=== PATIENT | female | born 1945 | race Caucasian/White ===

== ENCOUNTER 2016-07-10 15:55 | Emergency (ER) | payer MEDICARE ==
[2016-07-10] MEDS ORDERED: Acetaminophen 500 MG TAB ONE (16:22)
[2016-07-10] MEDS ORDERED: cefTRIAXone\\ROCEPHIN 1 GM VIAL ONE (16:23)
[2016-07-10] MEDS ORDERED: Sodium Chloride 0.9% 100 ML ONE (16:23)
[2016-07-10 16:40] LABS: #Basophils 0.1 thou/uL (0.0-0.2); #Lymphocytes 1.8 thou/uL (1.20-3.40); #Monocytes 1.1 thou/uL (0.11-0.59); %Basophils 0.5 % (0.0-1.0); %Eosinophils 0.1 % (0.0-10.0); %Monocytes 6.8 % (0.0-10.0); Hematocrit 38.2 % (36.0-47.0); Mean Platelet Volume 5.2 fL (7.4-10.4); Red Blood Cell (RBC) Count 4.18 mill/uL (4.20-5.40)
[2016-07-10 16:51] LABS: Lactic Acid - Sepsis 2.1 mmol/L (0.5-2.2)
[2016-07-10 16:55] LABS: ALT (SGPT) 10 U/L (0-55); AST (SGOT) 14 U/L (5-34); Alkaline Phosphatase 133 U/L (40-150); Anion Gap 18 mmol/L (10-20); BUN (Urea Nitrogen) 9 mg/dL (9.8-20.1); Bilirubin, Total 0.8 mg/dL (0.2-1.2); Calc. Creatinine Clearance 0 mL/min (70-130); Calcium 9.6 mg/dL (7.8-10.44); Carbon Dioxide 25 mmol/L (23-31); Chloride 96 mmol/L (98-107); Estimated GFR-MDRD 68; Globulin 3.9 g/dL (2.4-3.5); Protein, Total 7.9 g/dL (5.8-8.1)
[2016-07-10] MEDS ORDERED: Ketorolac Tromethamine 30 MG/ML VIAL ONE (17:16)
[2016-07-10 17:52] LABS: Bilirubin Negative (Negative); Blood, Urine Trace (Negative); Glucose, Urine (Dipstick) 500 mg/dL (Negative); Ketone, Urine > or equal to 80 mg/dL (Negative); Nitrite Negative (Negative); Protein, Urine (Dipstick) Trace mg/dL (Neg-Trace); Urobilinogen 0.2 mg/dL (0.2-1.0)
[2016-07-10 17:55] LABS: Bacteria/HPF Rare-Few HPF (None Seen); Hyaline Casts/LPF NONE SEEN LPF (0-3 Hyaline); Oval Fat Bodies/HPF None Seen HPF (None Seen); RBC/HPF 0-3 HPF (0-3); Renal Epithelial None Seen HPF (0-3); Sperm/HPF None Seen HPF (None Seen); Squamous Epithelial None Seen HPF (0-3); Transitional Epithelial NONE SEEN HPF (0-3); Trichomonas/HPF None Seen HPF (None Seen); Yeast-All Forms None Seen HPF (None Seen)
--- NOTE | 2016-07-10 19:47 | RAD ---
PORTABLE CHEST 07/10/16 Comparison is made with the 08/19/14 study. There has been interval development of a left pleural effusion. There may be an underlying infiltrat e in the lower lobe. The right lung is relatively clear. I am not impressed by any vascular congesti on. While the right hilum is a little more prominent than the left, this is probably due to the aysha ent being turned slightly. The cardiac size is normal. IMPRESSION: Interval appearance of a left pleural effusion, plus or minus basilar infiltrate. POS: HOME
== END 2016-07-10 19:00 | disposition short-term general hospital (02) ==
LOC: BURERS 15:55
DX: J15.9 Unspecified bacterial pneumonia (principal); E11.65 Type 2 diabetes mellitus with hyperglycemia; K21.9 Gastro-esophageal reflux disease without esophagitis; E78.5 Hyperlipidemia, unspecified; I10 Essential (primary) hypertension; F41.9 Anxiety disorder, unspecified; F32.9 Major depressive disorder, single episode, unspecified; Z79.4 Long term (current) use of insulin
CPT/HCPCS: 36415; 36416; 71010; 80053; 81003; 81015; 83605; 85025; 87040; 87086; 94640; 94760; 96361; 96365; 96375; J0696; J1885; J7050; J7620

== ENCOUNTER 2020-01-07 00:22 | Emergency (ER) | payer MEDICARE ==
[2020-01-07 00:43] LABS: Bilirubin Negative (Negative); Blood, Urine Negative (Negative); Clarity Clear (Clear); Glucose, Urine (Dipstick) 500 mg/dL (Negative); Ketone, Urine Negative (Negative); Leukocyte Trace (Negative); Nitrite Negative (Negative); Protein, Urine (Dipstick) Negative (Neg-Trace); Specific Gravity, Urine 1.015 (1.005-1.030); Urobilinogen 0.2 mg/dL (Less than 2); pH, Urine 5.5 (5.0-9.0)
[2020-01-07 00:50] LABS: Bacteria/HPF Rare-Few HPF (None Seen); RBC/HPF 0-3 HPF (0-3); Squamous Epithelial 0-3 HPF (0-3)
[2020-01-07] MEDS ORDERED: Famotidine In NaCl 20 mg/50 ml Premix Bag ONE (01:01)
[2020-01-07] MEDS ORDERED: Ondansetron PF 4 MG/2 ML Vial ONE ×2 (01:01→01:54)
[2020-01-07 01:10] LABS: #Basophils 0.1 thou/uL (0.0-0.2); #Eosinphils 0.3 thou/uL (0.0-0.7); #Lymphocytes 3.9 thou/uL (1.20-3.40); #Monocytes 0.8 thou/uL (0.11-0.59); #Neutrophils 7.1 thou/uL (1.40-6.50); %Basophils 1.1 % (0.0-1.0); %Eosinophils 2.1 % (0.0-10.0); %Lymphocytes 31.9 % (21.0-51.0); %Monocytes 6.5 % (0.0-10.0); %Neutrophils 58.4 % (42.0-75.0); Mean Corpuscular HGB CONC 31.3 g/dL (32.0-36.0); Mean Corpuscular Hemoglobin 30.3 pg (27.0-31.0); Mean Corpuscular Volume 96.9 fL (78.0-98.0); Mean Platelet Volume 6.5 fL (7.4-10.4); Platelet Count 275 thou/uL (130-400); RBC Distribution Width 11.3 % (11.5-14.5); Red Blood Cell (RBC) Count 4.61 mill/uL (4.20-5.40); White Blood Cell (WBC) Count 12.1 thou/uL (4.8-10.8)
[2020-01-07] MEDS ORDERED: Fentanyl 100 MCG/2 ML VIAL ONE ×2 (01:11→01:43)
[2020-01-07 01:32] LABS: ALT (SGPT) 22 U/L (8-55); AST (SGOT) 20 U/L (5-34); Albumin 4.3 g/dL (3.4-4.8); Alkaline Phosphatase 121 U/L (40-110); Anion Gap 18 mmol/L (10-20); BUN (Urea Nitrogen) 15 mg/dL (9.8-20.1); Bilirubin, Total 0.7 mg/dL (0.2-1.2); Calc. Creatinine Clearance 0 mL/min (70-130); Calcium 8.6 mg/dL (7.8-10.44); Carbon Dioxide 24 mmol/L (23-31); Chloride 98 mmol/L (98-107); Estimated GFR-MDRD 53; Globulin 2.5 g/dL (2.4-3.5); Glucose 355 mg/dL (83-110); Lipase 9 U/L (8-78); Potassium 3.9 mmol/L (3.5-5.1); Protein, Total 6.8 g/dL (6.0-8.3); Sodium 136 mmol/L (136-145)
[2020-01-07] MEDS ORDERED: Morphine 2 MG/ML SYRINGE ONE (02:14)
[2020-01-07] MEDS ORDERED: Glycopyrrolate 0.4 MG/ 2 ML VIAL ONE (02:15)
--- NOTE | 2020-01-07 09:28 | CT ---
PRELIMINARY REPORT/[facility]/EMERGENCY AFTER HOURS PROCEDURE: Receipt of this report by the clinical staff was confirmed with ОЛЕГ IBANEZ DO by Claudia Guzman Jan 07, 2020 02:26:00 CDT. Addendum electronically signed by Claudia Guzman on January 07, 2020 2:26:33 AM CDT EXAM: CT Abdomen and Pelvis with Intravenous Contrast CLINICAL HISTORY: ABD PAIN, WORSE ON THE LEFT THAN RIGHT TECHNIQUE: Axial computed tomography images of the abdomen and pelvis with intravenous contrast. Multiplanar re formats. This foraminal CONTRAST: With; ISO 370 COMPARISON: None provided. FINDINGS: LUNG BASES: No basilar airspace consolidation or pleural effusion. Left lower lobe bronchiectasis. LIVER: Unremarkable. GALLBLADDER AND BILE DUCTS: Unremarkable. No calcified stone. No ductal dilation. PANCREAS: Unremarkable. SPLEEN: Unremarkable. ADRENAL GLANDS: Unremarkable. KIDNEYS, URETERS, AND BLADDER: Unremarkable. No hydronephrosis or nephrolithiasis. No ureteral or bladder calculi. STOMACH AND BOWEL: Small hiatal hernia. Stacked fluid-filled small bowel loops in the abdomen and pelvis measure up to 3 cm. The transition point is in the central pelvis, there are short segments containing small bowel feces. APPENDIX: No CT evidence for appendicitis. PERITONEUM: Central mesenteric edema. No free fluid. No free air. LYMPH NODES: No lymphadenopathy. REPRODUCTIVE: Unremarkable as visualized. VASCULATURE: No aortic aneurysm. Atherosclerosis. Prominent mitral valve calcification. BONES: No fracture or suspicious osseous abnormality. Degenerative disc disease with foraminal narrowing at several lumbar levels. ABDOMINAL WALL AND SOFT TISSUES: Unremarkable. IMPRESSION: Distal small bowel obstruction with likely early strangulation. Nasogastric suction and surgical con sultation suggested, if clinically warranted. Small hiatal hernia. ELECTRONICALLY SIGNED BY: Gino Salazar MD Jan 07, 2020 2:20:14 AM CDT This report is intended for review by the ordering physician only, in accordance of law. If you recei ve this report in error, please call [facility] at [phone]. FINAL REPORT CT ABDOMEN AND PELVIS WITH CONTRAST: Date: 01/07/[address] of the abdomen and pelvis was performed for evaluation of abdominal pain. Scans were done w ith IV contrast and multiplanar reconstructions were done as well. Comparison is made with an 12/31/2013 study. FINDINGS: Multiple dilated fluid-filled loops of small bowel are present, some ranging up to nearly 3.0 cm in w idth. This is true of most of the small bowel, with only the distalmost portions assuming a normal si ze. The transition point appears to be distal. There is fecalization in some of the distal loops. No free air or free fluid seen. The lung bases are clear. A moderate sized hiatal hernia is present, a new finding compared to 2014. The liver, spleen, pancreas, gallbladder, kidneys, adrenal glands, and abdominal aorta show no acute findings. In the pelvis, there are some calcifications in the uterus that could be fibroids. No free fluid or inflammatory change is seen in the pelvis. Some degenerative changes are seen in the spine. IMPRESSION: 1. Distal small bowel obstruction. 2. Moderate sized hiatal hernia. Report in agreement with preliminary reading by [facility]. POS: HOME
--- NOTE | 2020-01-07 09:28 | RAD ---
ABDOMEN 1 VIEW: DATE: 01/07/2020. FINDINGS: An NG tube can be seen coursing down the midline of the lower chest and then it appears to take a cur ve towards the stomach. On this single film, as best as I can tell, the tip is probably in the dista l esophagus just about the enter the stomach itself. There are some mildly distended loops of bowel with air fluid levels. See CT to follow. No free air is present. IMPRESSION: Nasogastric tube most likely in the distal esophagus. POS: HOME
== END 2020-01-07 02:58 | disposition short-term general hospital (02) ==
LOC: BURERS 00:22
DX: K56.2 Volvulus (principal); E11.9 Type 2 diabetes mellitus without complications; K21.9 Gastro-esophageal reflux disease without esophagitis; E78.5 Hyperlipidemia, unspecified; I10 Essential (primary) hypertension; F41.9 Anxiety disorder, unspecified; F32.9 Major depressive disorder, single episode, unspecified; Z79.899 Other long term (current) drug therapy
CPT/HCPCS: 36416; 43752; 74018; 74177; 80053; 81003; 81015; 83690; 84484; 85025; 87086; 94760; 96365; 96375; 96376; J2270; J2405; J3010

== ENCOUNTER 2020-02-15 17:17 | Emergency (ER) | payer MEDICARE, OTHER ==
[2020-02-15 19:03] LABS: ALT (SGPT) 25 U/L (8-55); AST (SGOT) 29 U/L (5-34); Albumin 4.2 g/dL (3.4-4.8); Alkaline Phosphatase 88 U/L (40-110); Anion Gap 18 mmol/L (10-20); BUN (Urea Nitrogen) 15 mg/dL (9.8-20.1); Bilirubin, Total 0.4 mg/dL (0.2-1.2); Calc. Creatinine Clearance 0 mL/min (70-130); Calcium 9.1 mg/dL (7.8-10.44); Carbon Dioxide 25 mmol/L (23-31); Chloride 98 mmol/L (98-107); Estimated GFR-MDRD 58; Glucose 199 mg/dL (83-110); Potassium 3.8 mmol/L (3.5-5.1); Protein, Total 7.2 g/dL (6.0-8.3); Sodium 137 mmol/L (136-145)
[2020-02-15 19:08] LABS: Band 1 % (5-11); Eosinophils 1 % (0-10); Hemoglobin 13.4 g/dL (12.0-16.0); Lymphocytes 29 % (21-51); MDiff Complete? YES; Mean Corpuscular Hemoglobin 30.3 pg (27.0-31.0); Mean Corpuscular Volume 97.8 fL (78.0-98.0); Mean Platelet Volume 6.3 fL (7.4-10.4); Monocytes 10 % (0-10); Neutrophil 53 % (42-75); Platelet Count 221 thou/uL (130-400); RBC Distribution Width 11.5 % (11.5-14.5); Reactive Lymphocytes 6 % (0-10); Red Blood Cell (RBC) Count 4.41 mill/uL (4.20-5.40); White Blood Cell (WBC) Count 5.1 thou/uL (4.8-10.8)
[2020-02-15 19:12] LABS: Bilirubin Small (Negative); Blood, Urine Negative (Negative); Clarity Clear (Clear); Glucose, Urine (Dipstick) Negative (Negative); Ketone, Urine Trace mg/dL (Negative); Leukocyte Negative (Negative); Nitrite Negative (Negative); Protein, Urine (Dipstick) Trace mg/dL (Neg-Trace); Urobilinogen 0.2 mg/dL (Less than 2)
[2020-02-15] MEDS ORDERED: Acetaminophen 500 MG TAB ONE (19:55)
[2020-02-15] MEDS ORDERED: Aspirin Chewable 81 MG TAB ONE (19:55)
--- NOTE | 2020-02-15 21:38 | RAD ---
PORTABLE CHEST: Date: 02-15-2020 An AP portable film at 1910 is compared with an 01-07-2020 study. FINDINGS: The heart is normal in size. No definite acute infiltrate was seen. There is no sign of vascular justine estion, edema, or pleural effusion. The mediastinum showed no acute change. IMPRESSION: No acute thoracic finding. POS: HOME
[2020-02-16 16:04] LABS: SARS-CoV-2 MS2 Positive; SARS-CoV-2 N Gene Positive; SARS-CoV-2 S Gene Positive; SARS-CoV-2 by NAA DETECTED (NotDetected); SARS-CoV-2 orf1ab Positive
== END 2020-02-15 20:10 | disposition home or self-care (01) ==
LOC: BURERS 17:17
DX: U07.1 COVID-19 (principal); E11.9 Type 2 diabetes mellitus without complications; I10 Essential (primary) hypertension; K21.9 Gastro-esophageal reflux disease without esophagitis; E78.5 Hyperlipidemia, unspecified; F41.9 Anxiety disorder, unspecified; F32.9 Major depressive disorder, single episode, unspecified
CPT/HCPCS: 36415; 71045; 80053; 81003; 83605; 83880; 84484; 85025; 87635; 87804; 93005; U0003

== ENCOUNTER 2020-02-21 21:01 | Emergency (ER) | payer MEDICARE, OTHER ==
[2020-02-21] MEDS ORDERED: Guaifenesin DM 100-10/5 ML UDCUP ONE ×2 (21:31→21:32)
[2020-02-21 22:02] LABS: Base Excess-Venous -1.5 mmol/L (-2.0 to 3.0); Bicarbonate (HCO3v) 23.1 mmol/L (22.0-28.0); CO2 Tension (PvCO2) 37.9 mmHg (40.0-50.0); Calcium, Ionized 1.03 mmol/L (1.15-1.33); Chloride 99 mmol/L (98-107); Hemoglobin - Calc 14.6 g/dL (12.0-16.0); Sodium 131 mmol/L (138-145); T. Carbon Dioxide 24.2 mmol/L (22.0-28.0); vO2 Saturation-calc 80.7 % (60.0-85.0)
[2020-02-21 22:02] LABS: D-Dimer Test 0.61 *mcg/mL (0.27-0.43)
[2020-02-21 22:04] LABS: ALT (SGPT) 29 U/L (8-55); AST (SGOT) 48 U/L (5-34); Albumin 3.9 g/dL (3.4-4.8); Alkaline Phosphatase 91 U/L (40-110); Anion Gap 20 mmol/L (10-20); BUN (Urea Nitrogen) 14 mg/dL (9.8-20.1); Bilirubin, Total 0.4 mg/dL (0.2-1.2); Calc. Creatinine Clearance 0 mL/min (70-130); Calcium 8.2 mg/dL (7.8-10.44); Carbon Dioxide 20 mmol/L (23-31); Chloride 96 mmol/L (98-107); Estimated GFR-MDRD 49; Globulin 2.5 g/dL (2.4-3.5); Glucose 469 mg/dL (83-110); Potassium 4.4 mmol/L (3.5-5.1); Protein, Total 6.4 g/dL (6.0-8.3); Sodium 132 mmol/L (136-145)
[2020-02-21 22:11] LABS: #Lymphocytes 1.5 thou/uL (1.20-3.40); #Monocytes 0.3 thou/uL (0.11-0.59); #Neutrophils 4.1 thou/uL (1.40-6.50); %Basophils 0.4 % (0.0-1.0); %Eosinophils 0.2 % (0.0-10.0); %Lymphocytes 24.7 % (21.0-51.0); %Monocytes 4.8 % (0.0-10.0); %Neutrophils 69.9 % (42.0-75.0); Hemoglobin 13.5 g/dL (12.0-16.0); Mean Corpuscular HGB CONC 31.7 g/dL (32.0-36.0); Mean Corpuscular Hemoglobin 30.3 pg (27.0-31.0); Mean Corpuscular Volume 95.5 fL (78.0-98.0); Mean Platelet Volume 7.7 fL (7.4-10.4); Platelet Count 163 thou/uL (130-400); RBC Distribution Width 10.6 % (11.5-14.5); Red Blood Cell (RBC) Count 4.45 mill/uL (4.20-5.40); White Blood Cell (WBC) Count 5.9 thou/uL (4.8-10.8)
[2020-02-21] MEDS ORDERED: Insulin Regular 300 UNITS/3 ML VIAL ONE (22:12)
[2020-02-21] MEDS ORDERED: Enoxaparin Sodium 30 MG/0.3 ML SYRINGE ONE (22:15)
[2020-02-21 22:26] LABS: CKMB 0.8 ng/mL (0-6.6)
--- NOTE | 2020-02-22 07:16 | RAD ---
PORTABLE CHEST: Date: 02/21/2020 An AP portable film at 2133 hours is compared with the 02/15/2020 study. Although there is some respiratory motion on these films which blurs some portions, even allowing for this, I believe there are some patchy diffuse infiltrates in the right lung that were not present be fore. There may be a little linear atelectasis in the left base as well. Left upper lobe is fairly cl ear. There are no large effusions. The heart size is normal. IMPRESSION: Increase in patchy haziness in the right lung, especially peripherally, since 02/15/2020. Findings discussed with Dr. Gutierrez at 2141 hours. CODE CR. POS: HOME
== END 2020-02-21 23:15 | disposition short-term general hospital (02) ==
LOC: BURERS 21:01
DX: U07.1 COVID-19 (principal); J12.89 Other viral pneumonia; R06.03 Acute respiratory distress; R09.02 Hypoxemia; E11.9 Type 2 diabetes mellitus without complications; I10 Essential (primary) hypertension; K21.9 Gastro-esophageal reflux disease without esophagitis; E78.5 Hyperlipidemia, unspecified; F41.9 Anxiety disorder, unspecified; F32.9 Major depressive disorder, single episode, unspecified; Z79.899 Other long term (current) drug therapy; Z79.891 Long term (current) use of opiate analgesic
CPT/HCPCS: 71045; 80053; 82330; 82553; 82803; 83605; 83880; 84484; 85014; 85025; 85379; 85384; 85652; 86140; 87040; 96365; 96372; 96375; J1650; J1815; J1956; J3370

== ENCOUNTER 2020-03-01 17:55 | Inpatient (IN) | payer MEDICARE, OTHER ==
[2020-03-01] MEDS ORDERED: Ondansetron ODT 4 MG TAB PO PRN (20:49)
[2020-03-01] MEDS ORDERED: Dextrose 5% in Water 1,000 ML IV PRN (20:50)
[2020-03-01] MEDS ORDERED: Dextrose 50% Abboject 50 ML SYRINGE SLOW IVP PRN (20:50)
[2020-03-01] MEDS: ALPRAZolam 0.5 MG TAB PO PRN (21:29)
[2020-03-01] MEDS: Acetaminophen/Codeine 30-300mg Tablet PO PRN (21:29)
[2020-03-01] MEDS: HumaLOG 300 UNITS/3 ML VIAL SC PRN (21:46)
[2020-03-02] MEDS: Albuterol 200 PUFF (6.7GM INHALER) INH PRN ×2 (04:53→20:04)
[2020-03-02] MEDS: Acetaminophen/Codeine 30-300mg Tablet PO PRN ×4 (05:05→23:41)
[2020-03-02] MEDS ORDERED: Dexamethasone 4 MG TAB PO SCH (08:00)
[2020-03-02] MEDS: Lisinopril 5 MG TAB PO SCH (08:46)
[2020-03-02] MEDS: Saccharomyces boulardii 250 MG CAP PO SCH (08:46)
[2020-03-02] MEDS: FLUoxetine HCl 10 MG CAP PO SCH (08:46)
[2020-03-02] MEDS ORDERED: Ascorbic Acid 500 mg Chewable Tablet PO SCH (09:00)
[2020-03-02] MEDS: Lantus 1000 UNITS/10 ML VIAL SC SCH (10:23)
[2020-03-02] MEDS: HumaLOG 300 UNITS/3 ML VIAL SC PRN ×4 (10:23→20:16)
[2020-03-02] MEDS: ALPRAZolam 0.5 MG TAB PO PRN (20:04)
[2020-03-03] MEDS: Acetaminophen/Codeine 30-300mg Tablet PO PRN ×3 (05:28→17:53)
[2020-03-03] MEDS: FLUoxetine HCl 10 MG CAP PO SCH (08:42)
[2020-03-03] MEDS: Lisinopril 5 MG TAB PO SCH (08:42)
[2020-03-03] MEDS: Saccharomyces boulardii 250 MG CAP PO SCH (08:42)
[2020-03-03] MEDS: Lantus 1000 UNITS/10 ML VIAL SC SCH (08:43)
[2020-03-03] MEDS: ZINC SULFATE 220 MG PO SCH ×2 (08:48→12:45)
[2020-03-03] MEDS: Zinc Sulfate 220 MG CAP PO SCH (09:28)
[2020-03-03] MEDS: HumaLOG 300 UNITS/3 ML VIAL SC PRN ×2 (12:49→17:53)
[2020-03-03] MEDS: ALPRAZolam 0.5 MG TAB PO PRN (21:43)
[2020-03-04] MEDS: Acetaminophen/Codeine 30-300mg Tablet PO PRN ×3 (00:43→20:01)
[2020-03-04] MEDS: FLUoxetine HCl 10 MG CAP PO SCH (08:34)
[2020-03-04] MEDS: Lisinopril 5 MG TAB PO SCH (08:34)
[2020-03-04] MEDS: Saccharomyces boulardii 250 MG CAP PO SCH (08:35)
[2020-03-04] MEDS: Lantus 1000 UNITS/10 ML VIAL SC SCH (08:35)
[2020-03-04] MEDS: Zinc Sulfate 220 MG CAP PO SCH (08:35)
[2020-03-04] MEDS: HumaLOG 300 UNITS/3 ML VIAL SC PRN ×2 (13:06→17:39)
[2020-03-04] MEDS: ALPRAZolam 0.5 MG TAB PO PRN (20:00)
[2020-03-05] MEDS: Acetaminophen/Codeine 30-300mg Tablet PO PRN ×3 (03:27→18:36)
[2020-03-05] MEDS: ALPRAZolam 0.5 MG TAB PO PRN ×2 (03:27→12:11)
[2020-03-05] MEDS: FLUoxetine HCl 10 MG CAP PO SCH (09:21)
[2020-03-05] MEDS: Lisinopril 5 MG TAB PO SCH (09:22)
[2020-03-05] MEDS: Zinc Sulfate 220 MG CAP PO SCH (09:22)
[2020-03-05] MEDS: Lantus 1000 UNITS/10 ML VIAL SC SCH (09:22)
[2020-03-05] MEDS: Saccharomyces boulardii 250 MG CAP PO SCH (09:22)
[2020-03-05] MEDS: HumaLOG 300 UNITS/3 ML VIAL SC PRN ×2 (12:17→17:19)
[2020-03-06] MEDS: Acetaminophen/Codeine 30-300mg Tablet PO PRN ×4 (01:03→23:13)
[2020-03-06] MEDS: ALPRAZolam 0.5 MG TAB PO PRN (01:03)
[2020-03-06 05:42] LABS: #Basophils 0.1 thou/uL (0.0-0.2); #Eosinphils 0.2 thou/uL (0.0-0.7); #Lymphocytes 3.1 thou/uL (1.20-3.40); #Monocytes 0.8 thou/uL (0.11-0.59); #Neutrophils 6.2 thou/uL (1.40-6.50); %Eosinophils 1.5 % (0.0-10.0); %Lymphocytes 30.1 % (21.0-51.0); %Monocytes 7.7 % (0.0-10.0); %Neutrophils 59.8 % (42.0-75.0); Hemoglobin 12.1 g/dL (12.0-16.0); Mean Corpuscular HGB CONC 32.4 g/dL (32.0-36.0); Mean Corpuscular Hemoglobin 31.8 pg (27.0-31.0); Mean Corpuscular Volume 98.2 fL (78.0-98.0); Mean Platelet Volume 6.1 fL (7.4-10.4); Platelet Count 256 thou/uL (130-400); RBC Distribution Width 12.2 % (11.5-14.5); White Blood Cell (WBC) Count 10.4 thou/uL (4.8-10.8)
[2020-03-06 06:04] LABS: ALT (SGPT) 33 U/L (8-55); AST (SGOT) 32 U/L (5-34); Alkaline Phosphatase 160 U/L (40-110); Anion Gap 12 mmol/L (10-20); BUN (Urea Nitrogen) 24 mg/dL (9.8-20.1); Bilirubin, Direct 0.2 mg/dL (0.1-0.3); Bilirubin, Total 0.4 mg/dL (0.2-1.2); Calc. Creatinine Clearance 62 mL/min (70-130); Calcium 8.4 mg/dL (7.8-10.44); Carbon Dioxide 30 mmol/L (23-31); Chloride 95 mmol/L (98-107); Globulin 2.9 g/dL (2.4-3.5); Glucose 368 mg/dL (83-110); Potassium 4.7 mmol/L (3.5-5.1); Protein, Total 5.9 g/dL (6.0-8.3); Sodium 132 mmol/L (136-145)
[2020-03-06] MEDS: Saccharomyces boulardii 250 MG CAP PO SCH (09:05)
[2020-03-06] MEDS: Lisinopril 5 MG TAB PO SCH (09:06)
[2020-03-06] MEDS: FLUoxetine HCl 10 MG CAP PO SCH (09:06)
[2020-03-06] MEDS: Lantus 1000 UNITS/10 ML VIAL SC SCH (09:07)
[2020-03-06] MEDS: Zinc Sulfate 220 MG CAP PO SCH (09:07)
[2020-03-06] MEDS: HumaLOG 300 UNITS/3 ML VIAL SC PRN ×3 (12:33→21:07)
[2020-03-06] MEDS ORDERED: Lantus 1000 UNITS/10 ML VIAL SC SCH (21:00)
[2020-03-06] MEDS ORDERED: Insulin Glargine 30 UNITS in Pre-Filled Syringe 1 EACH SC SCH (21:00)
[2020-03-06] MEDS: Albuterol 200 PUFF (6.7GM INHALER) INH PRN (23:15)
[2020-03-07] MEDS: ALPRAZolam 0.5 MG TAB PO PRN ×2 (00:18→21:05)
[2020-03-07] MEDS: FLUoxetine HCl 10 MG CAP PO SCH (08:01)
[2020-03-07] MEDS: Lisinopril 5 MG TAB PO SCH (08:01)
[2020-03-07] MEDS: Saccharomyces boulardii 250 MG CAP PO SCH (08:01)
[2020-03-07] MEDS: Zinc Sulfate 220 MG CAP PO SCH (08:01)
[2020-03-07] MEDS: HumaLOG 300 UNITS/3 ML VIAL SC PRN ×4 (08:02→22:07)
[2020-03-07] MEDS: Lantus 1000 UNITS/10 ML VIAL SC SCH (08:03)
[2020-03-07] MEDS: Acetaminophen/Codeine 30-300mg Tablet PO PRN ×3 (08:23→21:04)
[2020-03-08] MEDS: Acetaminophen/Codeine 30-300mg Tablet PO PRN ×3 (05:44→20:26)
[2020-03-08] MEDS: Lisinopril 5 MG TAB PO SCH (08:03)
[2020-03-08] MEDS: FLUoxetine HCl 10 MG CAP PO SCH (08:03)
[2020-03-08] MEDS: Zinc Sulfate 220 MG CAP PO SCH (08:03)
[2020-03-08] MEDS: Saccharomyces boulardii 250 MG CAP PO SCH (08:03)
[2020-03-08] MEDS: Lantus 1000 UNITS/10 ML VIAL SC SCH (08:04)
[2020-03-08] MEDS: HumaLOG 300 UNITS/3 ML VIAL SC PRN ×4 (08:19→21:49)
[2020-03-08] MEDS: Fluconazole 100 MG TAB PO SCH (15:57)
[2020-03-09] MEDS: Acetaminophen/Codeine 30-300mg Tablet PO PRN ×3 (03:05→20:55)
[2020-03-09] MEDS: Zinc Sulfate 220 MG CAP PO SCH (09:37)
[2020-03-09] MEDS: Saccharomyces boulardii 250 MG CAP PO SCH (09:37)
[2020-03-09] MEDS: FLUoxetine HCl 10 MG CAP PO SCH (09:37)
[2020-03-09] MEDS: Lantus 1000 UNITS/10 ML VIAL SC SCH (09:39)
[2020-03-09] MEDS: Lisinopril 5 MG TAB PO SCH (09:42)
[2020-03-09 10:05] VITALS: BMI 29.8
[2020-03-09] MEDS: HumaLOG 300 UNITS/3 ML VIAL SC PRN ×3 (13:11→20:52)
[2020-03-09] MEDS: Fluconazole 100 MG TAB PO SCH (17:11)
[2020-03-09] MEDS: ALPRAZolam 0.5 MG TAB PO PRN (21:07)
[2020-03-10] MEDS: Acetaminophen/Codeine 30-300mg Tablet PO PRN ×3 (05:33→18:29)
[2020-03-10] MEDS: ALPRAZolam 0.5 MG TAB PO PRN (10:00)
[2020-03-10] MEDS: Saccharomyces boulardii 250 MG CAP PO SCH (10:18)
[2020-03-10] MEDS: FLUoxetine HCl 10 MG CAP PO SCH (10:18)
[2020-03-10] MEDS: Lisinopril 5 MG TAB PO SCH (10:19)
[2020-03-10] MEDS: Lantus 1000 UNITS/10 ML VIAL SC SCH (10:20)
[2020-03-10] MEDS: Zinc Sulfate 220 MG CAP PO SCH (10:20)
[2020-03-10] MEDS: HumaLOG 300 UNITS/3 ML VIAL SC PRN ×3 (12:04→23:35)
[2020-03-10] MEDS: Fluconazole 100 MG TAB PO SCH (17:15)
[2020-03-11] MEDS: Acetaminophen/Codeine 30-300mg Tablet PO PRN ×3 (06:07→21:50)
[2020-03-11] MEDS: FLUoxetine HCl 10 MG CAP PO SCH (08:24)
[2020-03-11] MEDS: Saccharomyces boulardii 250 MG CAP PO SCH (08:25)
[2020-03-11] MEDS: Zinc Sulfate 220 MG CAP PO SCH (08:25)
[2020-03-11] MEDS: Lisinopril 5 MG TAB PO SCH (08:25)
[2020-03-11] MEDS: Lantus 1000 UNITS/10 ML VIAL SC SCH (08:28)
[2020-03-11] MEDS: HumaLOG 300 UNITS/3 ML VIAL SC PRN ×4 (08:31→21:51)
[2020-03-11] MEDS: ALPRAZolam 0.5 MG TAB PO PRN (22:03)
[2020-03-12] MEDS: Lisinopril 5 MG TAB PO SCH (08:11)
[2020-03-12] MEDS: FLUoxetine HCl 10 MG CAP PO SCH (08:11)
[2020-03-12] MEDS: Lantus 1000 UNITS/10 ML VIAL SC SCH (08:12)
[2020-03-12] MEDS: Saccharomyces boulardii 250 MG CAP PO SCH (08:12)
[2020-03-12] MEDS: Zinc Sulfate 220 MG CAP PO SCH (08:12)
[2020-03-12] MEDS: HumaLOG 300 UNITS/3 ML VIAL SC PRN ×4 (09:37→22:12)
[2020-03-12] MEDS: Acetaminophen/Codeine 30-300mg Tablet PO PRN ×2 (11:59→18:54)
[2020-03-13] MEDS: Acetaminophen/Codeine 30-300mg Tablet PO PRN ×4 (01:07→21:56)
[2020-03-13] MEDS: ALPRAZolam 0.5 MG TAB PO PRN ×2 (01:07→21:56)
[2020-03-13] MEDS: FLUoxetine HCl 10 MG CAP PO SCH (07:56)
[2020-03-13] MEDS: Saccharomyces boulardii 250 MG CAP PO SCH (07:56)
[2020-03-13] MEDS: Zinc Sulfate 220 MG CAP PO SCH (07:57)
[2020-03-13] MEDS: Lisinopril 5 MG TAB PO SCH (07:57)
[2020-03-13] MEDS: Lantus 1000 UNITS/10 ML VIAL SC SCH (07:58)
[2020-03-13] MEDS: HumaLOG 300 UNITS/3 ML VIAL SC PRN ×4 (07:58→21:52)
[2020-03-14] MEDS: Zinc Sulfate 220 MG CAP PO SCH (08:28)
[2020-03-14] MEDS: FLUoxetine HCl 10 MG CAP PO SCH (08:28)
[2020-03-14] MEDS: Lisinopril 5 MG TAB PO SCH (08:28)
[2020-03-14] MEDS: Saccharomyces boulardii 250 MG CAP PO SCH (08:31)
[2020-03-14] MEDS: Lantus 1000 UNITS/10 ML VIAL SC SCH (08:32)
[2020-03-14] MEDS: HumaLOG 300 UNITS/3 ML VIAL SC PRN ×3 (08:33→17:16)
[2020-03-14] MEDS: Acetaminophen/Codeine 30-300mg Tablet PO PRN ×2 (09:16→15:48)
[2020-03-14] MEDS: Albuterol 200 PUFF (6.7GM INHALER) INH PRN (15:49)
[2020-03-14 17:39] VITALS: BP 136/62; TEMP 98.2
--- NOTE | 2020-03-17 13:36 | DIS ---
DATE OF ADMISSION: 03/01/2020 DATE OF DISCHARGE: 03/14/2020 ADMISSION DIAGNOSES: 1. COVID pneumonia, resolving. 2. Acute respiratory failure, resolving. 3. Deconditioning. 4. Diabetes mellitus. 5. Hypertension. DISCHARGE DIAGNOSES: 1. COVID pneumonia, resolving. 2. Acute respiratory failure, resolved. 3. Deconditioning, improved. 4. Diabetes mellitus, controlled. HOSPITAL COURSE: The patient is an extremely pleasant 75-year-old white female, who came down with COVID pneumonia with acute hypoxic respiratory failure requiring admission to the hospital. She was admitted on 02/22/2020, due to deconditioning, was transferred to [facility] on 03/01/2020. HOSPITAL COURSE: The patient was initiated to start occupational physical therapy. She required a walker during ambulation. She slowly improved to the point where she can ambulate independently and/or with a walker or cane and transfer independently. The patient's hypoxia improved somewhat, but she continued to require some oxygenation. Hopefully, that will continue to improve and resolve after discharge. The patient's diabetes mellitus was controlled with a sliding scale and she was given extra insulin to control her diabetes. The patient's anxiety and depression were well controlled as well. DISCHARGE MEDICATIONS: 1. Lantus 30 units every morning. 2. Alprazolam 0.25 mg q.6 hours p.r.n. anxiety. 3. Proventil HFA p.r.n. cough. 4. Vitamin C 1000 mg daily. 5. Zinc sulfate 220 mg daily. 6. Tresiba 20 units subcutaneously will be replaced by insulin Lantus. 7. Acetaminophen with Codeine #3 one tablet q.6 hours p.r.n. pain. 8. Fluoxetine 40 mg daily. 9. Lisinopril 5 mg daily. DISCHARGE ACTIVITY: Will be as tolerated. The patient was ordered to have home health for continued occupational and physical therapy on a home basis. Follow up with her PCP Dr. Barillas within two weeks. She was told to go to the emergency room if her symptoms worsen. Job ID: [id number]
--- NOTE | 2020-04-18 06:12 | HP ---
ADMISSION DIAGNOSES: 1. COVID-19 pneumonia with hypoxia and deconditioning. 2. Diabetes mellitus. HISTORY OF PRESENT ILLNESS: The patient is an extremely pleasant 75-year-old white female who was admitted to [facility] on February 22, 2020, with COVID pneumonia with acute hypoxic respiratory failure secondary to the pneumonia. She was seen by Dr. Raphael and started on dexamethasone, remdesivir, vitamin C, and zinc. She clinically improved, but continued to require supplemental oxygen, was severely deconditioned and thus was admitted to [facility] in [place] for occupational and physical therapy and continued oxygen therapy as well as finishing her course of dexamethasone. PAST MEDICAL HISTORY: Significant for: 1. Diabetes mellitus. 2. COVID-19 pneumonia. 3. History of recent hyponatremia. 4. History of severe deconditioning. 5. History of hypertension. 6. History of anxiety and depression. 7. History of gastroesophageal reflux disease. MEDICATIONS: 1. Alprazolam 0.25 mg q.6 hours p.r.n. 2. Albuterol/Proventil inhaler p.r.n. 3. Vitamin C 1000 mg daily. 4. Zinc 220 mg daily. 5. Tresiba 20 units daily. 6. Tylenol with codeine No. 3 daily p.r.n. pain. 7. Fluoxetine 40 mg daily. 8. Lisinopril 5 mg daily. 9. Omeprazole 20 mg daily. 10. Dexamethasone 6 mg p.o. daily. SOCIAL HISTORY: The patient is a retired nurse. She is independent in all activities of daily living at her baseline. No significant smoking, alcohol, or social drug use. REVIEW OF SYSTEMS: The patient reports diffuse weakness, tiredness, and tachypnea with any exertion. The patient says that she continues to have a cough, dry to yellow clear sputum. She had fevers during hospitalization, which have now resolved. Her appetite had been poor, but is present. The patient denied any emesis or diarrhea. No dysuria, hematuria, or change in urinary frequency. No abdominal pain. No palpitations reported. The patient denies any significant weight loss or weight gain. She reports her depression and anxiety are being controlled. No significant back pain and no rashes reported. PHYSICAL EXAMINATION: GENERAL: White female, tired appearing, in no apparent distress. VITAL SIGNS: Blood pressure 128/68, respiratory rate was 22, pulse was 88. HEENT: Atraumatic, normocephalic. Extraocular movements are intact. Pupils are equal, round, reactive to light and accommodation. Oropharynx, mucous membranes are moist. No exudate, discharge, or lesions. NECK: Supple. No masses palpated. No bruits auscultated. CHEST: Had rhonchi bilaterally without rales or wheezes. HEART: Regular rate and rhythm without murmurs, rubs, or gallops. ABDOMEN: Soft, nontender, nondistended. No masses are palpated. EXTREMITIES: Show no cyanosis, clubbing, or edema. Moves all extremities x4. ASSESSMENT AND PLAN: 1. COVID pneumonia with acute hypoxic respiratory failure, which has improved. The patient will continue on the oxygen. 2. Deconditioning. Physical therapy and occupational therapy will be initiated. 3. Diabetes mellitus. We will place the patient on insulin sliding scale with Accu-Cheks q.a.c. and at bedtime. 4. COVID pneumonia. The patient will continue dexamethasone for the full course as well as oxygen p.r.n. She will continue to be in isolation, which will be needed for 21 days total. DISPOSITION: Plan will be discharge to home once the patient is able. Job ID: [id number]
== END 2020-03-14 20:36 | disposition home health service (06) | DRG 947 ==
LOC: BURMED 18:20
PROVIDERS: ADMIT Family Medicine; ATTEND Family Medicine
DX: R53.81 Other malaise (principal); U07.1 COVID-19; J12.89 Other viral pneumonia; I10 Essential (primary) hypertension; E11.9 Type 2 diabetes mellitus without complications; E78.00 Pure hypercholesterolemia, unspecified; K21.9 Gastro-esophageal reflux disease without esophagitis
CPT/HCPCS: 36415; 36416; 80053; 80076; 85025; J1815; J8540

== ENCOUNTER 2021-01-16 10:59 | Observation (INO) | payer MEDICARE ==
[2021-01-16 12:04] LABS: #Basophils 0.2 thou/uL (0.0-0.2); #Eosinphils 0.6 thou/uL (0.0-0.7); #Lymphocytes 2.7 thou/uL (1.20-3.40); #Neutrophils 10.2 thou/uL (1.40-6.50); %Lymphocytes 18.3 % (21.0-51.0); %Monocytes 6.6 % (0.0-10.0); Hemoglobin 14.6 g/dL (12.0-16.0); Mean Corpuscular HGB CONC 31.8 g/dL (32.0-36.0); Mean Corpuscular Hemoglobin 30.1 pg (27.0-31.0); Mean Corpuscular Volume 94.7 fL (78.0-98.0); Platelet Count 403 thou/uL (130-400); Red Blood Cell (RBC) Count 4.86 mill/uL (4.20-5.40); White Blood Cell (WBC) Count 14.6 thou/uL (4.8-10.8)
[2021-01-16] MEDS ORDERED: methylPREDNISolone Sod Succ/PF 125 MG/2 ML VIAL ONE (12:06)
[2021-01-16 12:10] LABS: Bilirubin Moderate (Negative); Blood, Urine Trace (Negative); Clarity Slightly Cloudy (Clear); Glucose, Urine (Dipstick) Negative (Negative); Ketone, Urine Trace mg/dL (Negative); Leukocyte Small (Negative); Nitrite Positive (Negative); Protein, Urine (Dipstick) 100 mg/dL (Neg-Trace)
[2021-01-16 12:20] LABS: Specific Gravity, Urine 1.025 (1.002-1.036)
[2021-01-16 12:23] LABS: ALT (SGPT) 9 U/L (8-55); AST (SGOT) 14 U/L (5-34); Albumin 4.1 g/dL (3.4-4.8); Alkaline Phosphatase 113 U/L (40-110); Anion Gap 17 mmol/L (10-20); BUN (Urea Nitrogen) 12 mg/dL (9.8-20.1); Bilirubin, Total 0.4 mg/dL (0.2-1.2); Calc. Creatinine Clearance 0 mL/min (70-130); Calcium 9.6 mg/dL (7.8-10.44); Carbon Dioxide 24 mmol/L (23-31); Chloride 101 mmol/L (98-107); Globulin 4.1 g/dL (2.4-3.5); Glucose 112 mg/dL (83-110); Potassium 3.7 mmol/L (3.5-5.1); Protein, Total 8.2 g/dL (5.8-8.1); Sodium 138 mmol/L (136-145)
[2021-01-16 12:35] LABS: Bacteria/HPF 1+ HPF (None Seen); RBC/HPF 0-3 HPF (0-3); Squamous Epithelial 0-3 HPF (0-3); WBC/HPF Greater than 50 HPF (0-3)
[2021-01-16 13:14] LABS: Base Excess-Venous -0.1 mmol/L (-2.0 to 3.0); Bicarbonate (HCO3v) 27.5 mmol/L (22.0-28.0); CO2 Tension (PvCO2) 55.2 mmHg (42.0-51.0); Calcium, Ionized 1.18 mmol/L (1.15-1.33); Chloride 102 mmol/L (98-107); Hemoglobin - Calc 15.7 g/dL (12.0-16.0); Potassium 3.5 mmol/L (3.5-5.1); Sodium 140 mmol/L (138-145); T. Carbon Dioxide 29.2 mmol/L (22.0-28.0); vO2 Saturation-calc 89.5 % (60.0-85.0)
[2021-01-16 13:39] LABS: SARS-CoV-2 NAA Rapid Test Not Detected (NotDetected)
[2021-01-16] MEDS ORDERED: Sodium Chloride 0.9% 100 ML ONE (14:02)
[2021-01-16] MEDS ORDERED: cefTRIAXone\\ROCEPHIN 2 GM VIAL ONE (14:02)
[2021-01-16] MEDS ORDERED: Melatonin 3 MG TAB PO PRN (15:48)
[2021-01-16] MEDS ORDERED: cloNIDine 0.1 MG TAB PO PRN (15:59)
[2021-01-16] MEDS ORDERED: Loperamide HCl 2 MG CAP PO PRN (16:10)
[2021-01-16 16:20] VITALS: BMI 30.4
[2021-01-16] MEDS: Sodium Chloride 0.9% 1,000 ML IV SCH (16:40)
[2021-01-16] MEDS ORDERED: Ondansetron PF 4 MG/2 ML Vial IVP PRN ×2 (17:01→19:45)
[2021-01-16] MEDS: methylPREDNISolone Sod Succ 40 MG VIAL IVP SCH (17:53)
[2021-01-16] MEDS ORDERED: Albuterol Sulfate 2.5 mg/3 ml Neb NEB PRN (19:42)
[2021-01-16] MEDS ORDERED: Promethazine 25 MG TAB PO PRN (19:43)
[2021-01-16] MEDS ORDERED: Ondansetron ODT 4 MG TAB SL PRN (19:45)
[2021-01-16] MEDS ORDERED: Sodium Chloride 0.9% 1,000 ML IV SCH (19:45)
[2021-01-16] MEDS: Benzonatate 100 MG CAP PO SCH (21:44)
[2021-01-16] MEDS: HYDROcodone/Acetaminophen 5/325 mg Tablet PO PRN (21:45)
[2021-01-16] MEDS: ALPRAZolam 0.5 MG TAB PO PRN (21:45)
[2021-01-17] MEDS: methylPREDNISolone Sod Succ 40 MG VIAL IVP SCH ×5 (00:15→23:57)
[2021-01-17] MEDS: Acetaminophen 325 MG TAB PO PRN (01:22)
[2021-01-17] MEDS: Sodium Chloride 0.9% 1,000 ML IV SCH ×3 (02:44→17:21)
[2021-01-17] MEDS ORDERED: Dextrose 5% in Water 1,000 ML IV PRN (03:30)
[2021-01-17] MEDS ORDERED: Dextrose 50% Abboject 50 ML SYRINGE IVP PRN (03:30)
[2021-01-17] MEDS: HumaLOG 300 UNITS/3 ML VIAL SC PRN ×5 (03:33→20:44)
[2021-01-17 05:20] LABS: #Monocytes 0.2 thou/uL (0.11-0.59); #Neutrophils 7.6 thou/uL (1.40-6.50); %Basophils 0.3 % (0.0-1.0); %Lymphocytes 11.8 % (21.0-51.0); %Monocytes 1.7 % (0.0-10.0); %Neutrophils 86.2 % (42.0-75.0); Mean Corpuscular HGB CONC 32.3 g/dL (32.0-36.0); Mean Corpuscular Hemoglobin 30.3 pg (27.0-31.0); Mean Corpuscular Volume 93.9 fL (78.0-98.0); Mean Platelet Volume 6.1 fL (7.4-10.4); Platelet Count 320 thou/uL (130-400); RBC Distribution Width 11.9 % (11.5-14.5); Red Blood Cell (RBC) Count 3.96 mill/uL (4.20-5.40); White Blood Cell (WBC) Count 8.8 thou/uL (4.8-10.8)
[2021-01-17 05:28] LABS: Anion Gap 16 mmol/L (10-20); BUN (Urea Nitrogen) 17 mg/dL (9.8-20.1); Calc. Creatinine Clearance 46 mL/min (70-130); Calcium 8.9 mg/dL (7.8-10.44); Carbon Dioxide 18 mmol/L (23-31); Chloride 104 mmol/L (98-107); Glucose 420 mg/dL (83-110); Sodium 134 mmol/L (136-145)
[2021-01-17] MEDS: Ascorbic Acid 500 mg Chewable Tablet PO SCH (10:05)
[2021-01-17] MEDS: Benzonatate 100 MG CAP PO SCH ×3 (10:05→20:47)
[2021-01-17] MEDS: FLUoxetine HCl 10 MG CAP PO SCH (10:05)
[2021-01-17] MEDS: Zinc Sulfate 220 MG CAP PO SCH (10:06)
[2021-01-17] MEDS: Cholecalciferol 1,000 UNITS (25 MCG) TAB PO SCH (10:06)
[2021-01-17] MEDS: Lisinopril 5 MG TAB PO SCH (10:06)
[2021-01-17] MEDS: Lantus 1000 UNITS/10 ML VIAL SC SCH (10:11)
[2021-01-17] MEDS: Enoxaparin Sodium 30 MG/0.3 ML SYRINGE SC SCH (10:11)
[2021-01-17] MEDS: cefTRIAXone\\ROCEPHIN 1 GM in Sodium Chloride 0.9% 100 ML IVPB SCH (10:12)
[2021-01-17] MEDS: HYDROcodone/Acetaminophen 5/325 mg Tablet PO PRN (17:20)
[2021-01-17] MEDS: ALPRAZolam 0.5 MG TAB PO PRN (20:46)
[2021-01-18] MEDS: methylPREDNISolone Sod Succ 40 MG VIAL IVP SCH ×3 (05:26→17:41)
[2021-01-18 05:57] LABS: Anion Gap 12 mmol/L (10-20); BUN (Urea Nitrogen) 18 mg/dL (9.8-20.1); Calc. Creatinine Clearance 54 mL/min (70-130); Calcium 8.8 mg/dL (7.8-10.44); Carbon Dioxide 21 mmol/L (23-31); Chloride 107 mmol/L (98-107); Glucose 496 mg/dL (83-110); Potassium 4.5 mmol/L (3.5-5.1); Sodium 135 mmol/L (136-145)
[2021-01-18] MEDS: cefTRIAXone\\ROCEPHIN 1 GM in Sodium Chloride 0.9% 100 ML IVPB SCH (09:08)
[2021-01-18] MEDS: Lisinopril 5 MG TAB PO SCH (09:15)
[2021-01-18] MEDS: Ascorbic Acid 500 mg Chewable Tablet PO SCH (09:16)
[2021-01-18] MEDS: Cholecalciferol 1,000 UNITS (25 MCG) TAB PO SCH (09:16)
[2021-01-18] MEDS: Zinc Sulfate 220 MG CAP PO SCH (09:16)
[2021-01-18] MEDS: FLUoxetine HCl 10 MG CAP PO SCH (09:22)
[2021-01-18] MEDS: Benzonatate 100 MG CAP PO SCH ×3 (09:22→21:08)
[2021-01-18] MEDS: Lantus 1000 UNITS/10 ML VIAL SC SCH (09:26)
[2021-01-18] MEDS: HumaLOG 300 UNITS/3 ML VIAL SC PRN ×4 (09:28→21:12)
[2021-01-18] MEDS: Enoxaparin Sodium 30 MG/0.3 ML SYRINGE SC SCH (09:37)
[2021-01-18] MEDS ORDERED: Dextrose 5% in Water 1,000 ML IV PRN (11:51)
[2021-01-18] MEDS ORDERED: Dextrose 50% Abboject 50 ML SYRINGE SLOW IVP PRN (11:51)
[2021-01-18] MEDS: HYDROcodone/Acetaminophen 5/325 mg Tablet PO PRN (17:37)
[2021-01-19] MEDS: ALPRAZolam 0.5 MG TAB PO PRN ×2 (00:13→08:30)
[2021-01-19] MEDS: methylPREDNISolone Sod Succ 40 MG VIAL IVP SCH ×3 (00:13→12:24)
[2021-01-19] MEDS: Zinc Sulfate 220 MG CAP PO SCH (08:30)
[2021-01-19] MEDS: Benzonatate 100 MG CAP PO SCH ×3 (08:30→21:46)
[2021-01-19] MEDS: FLUoxetine HCl 10 MG CAP PO SCH (08:30)
[2021-01-19] MEDS: Ascorbic Acid 500 mg Chewable Tablet PO SCH (08:31)
[2021-01-19] MEDS: Cholecalciferol 1,000 UNITS (25 MCG) TAB PO SCH (08:31)
[2021-01-19] MEDS: Enoxaparin Sodium 30 MG/0.3 ML SYRINGE SC SCH (08:32)
[2021-01-19] MEDS: Lantus 1000 UNITS/10 ML VIAL SC SCH (08:33)
[2021-01-19] MEDS: cefTRIAXone\\ROCEPHIN 1 GM in Sodium Chloride 0.9% 100 ML IVPB SCH (08:33)
[2021-01-19] MEDS: Lisinopril 5 MG TAB PO SCH (08:37)
[2021-01-19] MEDS: HYDROcodone/Acetaminophen 5/325 mg Tablet PO PRN ×2 (10:09→21:48)
[2021-01-19] MEDS: HumaLOG 300 UNITS/3 ML VIAL SC PRN ×3 (12:23→22:22)
[2021-01-19] MEDS ORDERED: predniSONE 20 MG TAB PO SCH ×2 (13:10→13:15)
[2021-01-20] MEDS: Acetaminophen 325 MG TAB PO PRN (03:59)
[2021-01-20 05:23] VITALS: TEMP 98.4
[2021-01-20] MEDS ORDERED: predniSONE 20 MG TAB PO SCH (08:00)
[2021-01-20] MEDS: Cholecalciferol 1,000 UNITS (25 MCG) TAB PO SCH (08:55)
[2021-01-20] MEDS: Lisinopril 5 MG TAB PO SCH (08:55)
[2021-01-20] MEDS: Ascorbic Acid 500 mg Chewable Tablet PO SCH (08:56)
[2021-01-20] MEDS: Enoxaparin Sodium 30 MG/0.3 ML SYRINGE SC SCH (08:56)
[2021-01-20] MEDS: Benzonatate 100 MG CAP PO SCH ×2 (08:56→13:49)
[2021-01-20] MEDS: Zinc Sulfate 220 MG CAP PO SCH (08:56)
[2021-01-20] MEDS: FLUoxetine HCl 10 MG CAP PO SCH (08:57)
[2021-01-20] MEDS: Lantus 1000 UNITS/10 ML VIAL SC SCH (08:57)
[2021-01-20 13:51] VITALS: BP 168/60
[2021-01-20] MEDS: HYDROcodone/Acetaminophen 5/325 mg Tablet PO PRN (14:43)
== END 2021-01-20 05:45 | disposition home or self-care (01) ==
LOC: BURERS 10:59 → BURMED 14:00 → INTOOBSV 14:00
PROVIDERS: ADMIT Family Medicine; ATTEND Family Medicine
DX: R09.02 Hypoxemia (principal); N39.0 Urinary tract infection, site not specified; B96.20 Unspecified Escherichia coli [E. coli] as the cause of diseases classified elsewhere; E11.65 Type 2 diabetes mellitus with hyperglycemia; I10 Essential (primary) hypertension; K21.9 Gastro-esophageal reflux disease without esophagitis; J44.9 Chronic obstructive pulmonary disease, unspecified; Z20.822 Contact with and (suspected) exposure to COVID-19; Z16.11 Resistance to penicillins; Z16.20 Resistance to unspecified antibiotic; Z16.29 Resistance to other single specified antibiotic; Z88.8 Allergy status to other drugs, medicaments and biological substances; Z79.4 Long term (current) use of insulin; Z79.891 Long term (current) use of opiate analgesic; Z79.899 Other long term (current) drug therapy; Z86.16 Personal history of COVID-19
CPT/HCPCS: 36415; 36416; 71045; 80048; 80053; 81003; 81015; 82274; 82330; 82803; 83880; 84484; 85014; 85025; 87040; 87077; 87086; 87186; 94640; 94760; 96365; 96372; 96375; 96376; G0378; J0696; J1650; J1815; J2920; J2930; J3490; J7050; J7512; J7620; U0002

== ENCOUNTER 2021-10-27 18:45 | Inpatient (IN) | payer MEDICARE ==
[2021-10-27] MEDS ORDERED: Cyclobenzaprine 10 MG TAB PO PRN (22:59)
[2021-10-27] MEDS ORDERED: Ibuprofen 200 MG TAB PO PRN (22:59)
[2021-10-27] MEDS ORDERED: ALPRAZolam 0.5 MG TAB PO PRN (23:00)
[2021-10-27] MEDS ORDERED: Dextrose 50% Abboject 50 ML SYRINGE SLOW IVP PRN (23:04)
[2021-10-27] MEDS ORDERED: Losartan 25 MG TAB PO SCH (23:15)
[2021-10-27] MEDS ORDERED: DULoxetine 30 MG CAP PO SCH (23:15)
[2021-10-27] MEDS ORDERED: Dextrose 5% in Water 1,000 ML IV PRN (23:15)
[2021-10-27] MEDS ORDERED: Mirtazapine 15 MG TAB PO SCH (23:15)
[2021-10-27] MEDS ORDERED: lamoTRIgine 25 MG TAB PO SCH (23:15)
[2021-10-27] MEDS ORDERED: Mirtazapine 15 MG TAB ONE (23:28)
[2021-10-27] MEDS: HYDROcodone/Acetaminophen 5/325 mg Tablet PO PRN (23:34)
[2021-10-27] MEDS: HumaLOG 300 UNITS/3 ML VIAL SC PRN (23:47)
[2021-10-28 00:11] VITALS: BMI 29.2
[2021-10-28] MEDS: Albuterol 200 PUFF (6.7GM INHALER) INH PRN ×2 (00:16→22:09)
[2021-10-28] MEDS: HumaLOG 300 UNITS/3 ML VIAL SC PRN ×4 (08:24→22:08)
[2021-10-28] MEDS ORDERED: Benzonatate 100 MG CAP PO SCH (09:00)
[2021-10-28] MEDS ORDERED: Promethazine 25 MG TAB PO PRN (09:14)
[2021-10-28] MEDS ORDERED: Albuterol Sulfate 2.5 mg/3 ml Neb NEB PRN (09:46)
[2021-10-28] MEDS: HYDROcodone/Acetaminophen 5/325 mg Tablet PO PRN ×2 (10:47→18:44)
[2021-10-28] MEDS: cloNIDine 0.1 MG TAB PO SCH ×2 (12:28→17:41)
[2021-10-28] MEDS: Benzonatate 100 MG CAP PO SCH ×2 (15:59→22:05)
[2021-10-28] MEDS: Ibuprofen 200 MG TAB PO PRN (16:56)
[2021-10-28] MEDS: Cyclobenzaprine 10 MG TAB PO PRN (16:56)
[2021-10-28] MEDS ORDERED: lamoTRIgine 25 MG TAB PO SCH (21:00)
[2021-10-28] MEDS ORDERED: Mirtazapine 15 MG TAB PO SCH (21:00)
[2021-10-28] MEDS ORDERED: Losartan 25 MG TAB PO SCH (21:00)
[2021-10-28] MEDS ORDERED: DULoxetine 30 MG CAP PO SCH (21:00)
[2021-10-28] MEDS: Losartan 25 MG TAB PO SCH (22:04)
[2021-10-28] MEDS: DULoxetine 30 MG CAP PO SCH (22:04)
[2021-10-28] MEDS: Senokot S 8.6-50 MG TAB PO SCH (22:05)
[2021-10-28] MEDS: Aspirin 81 mg Enteric Coated Tablet PO SCH (22:06)
[2021-10-28] MEDS: Mirtazapine 15 MG TAB PO SCH (22:07)
[2021-10-28] MEDS: lamoTRIgine 25 MG TAB PO SCH (22:10)
[2021-10-29] MEDS: cloNIDine 0.1 MG TAB PO SCH ×3 (00:15→11:26)
[2021-10-29] MEDS: Cyclobenzaprine 10 MG TAB PO PRN ×2 (00:36→18:24)
[2021-10-29] MEDS: Mometasone/Formoterol 200/5 60 PUFF INH SCH ×3 (00:37→21:27)
[2021-10-29] MEDS: HYDROcodone/Acetaminophen 5/325 mg Tablet PO PRN ×3 (02:43→21:23)
[2021-10-29] MEDS: Ibuprofen 200 MG TAB PO PRN ×2 (02:47→15:51)
[2021-10-29] MEDS: Cholecalciferol 1,000 UNITS (25 MCG) TAB PO SCH (08:53)
[2021-10-29] MEDS: Ascorbic Acid 500 mg Chewable Tablet PO SCH (08:53)
[2021-10-29] MEDS: Polyethylene Glycol 3350 17 GM Packet PO SCH (08:53)
[2021-10-29] MEDS: Benzonatate 100 MG CAP PO SCH ×3 (08:54→21:06)
[2021-10-29] MEDS: Senokot S 8.6-50 MG TAB PO SCH ×2 (08:54→21:02)
[2021-10-29] MEDS: Aspirin 81 mg Enteric Coated Tablet PO SCH (08:54)
[2021-10-29] MEDS: Lantus 1000 UNITS/10 ML VIAL SC SCH ×2 (08:55→21:16)
[2021-10-29] MEDS: HumaLOG 300 UNITS/3 ML VIAL SC PRN ×3 (08:57→18:25)
[2021-10-29] MEDS: ALPHA LIPOIC ACID 200 MG PO SCH (09:07)
[2021-10-29] MEDS ORDERED: cloNIDine 0.1 MG TAB PO PRN (13:05)
[2021-10-29] MEDS ORDERED: HumaLOG 300 UNITS/3 ML VIAL SC SCH (20:45)
[2021-10-29] MEDS: Mirtazapine 15 MG TAB PO SCH (21:03)
[2021-10-29] MEDS: lamoTRIgine 25 MG TAB PO SCH (21:05)
[2021-10-29] MEDS: DULoxetine 30 MG CAP PO SCH (21:07)
[2021-10-29] MEDS: Losartan 25 MG TAB PO SCH (21:15)
[2021-10-30] MEDS: Ibuprofen 200 MG TAB PO PRN ×3 (04:12→21:17)
[2021-10-30] MEDS: Cyclobenzaprine 10 MG TAB PO PRN ×3 (04:14→21:17)
[2021-10-30] MEDS: HYDROcodone/Acetaminophen 5/325 mg Tablet PO PRN ×2 (09:01→17:09)
[2021-10-30] MEDS: Cholecalciferol 1,000 UNITS (25 MCG) TAB PO SCH (09:03)
[2021-10-30] MEDS: Aspirin 81 mg Enteric Coated Tablet PO SCH (09:04)
[2021-10-30] MEDS: Benzonatate 100 MG CAP PO SCH ×3 (09:04→21:20)
[2021-10-30] MEDS: Enoxaparin Sodium 40 MG/0.4 ML SYRINGE SC SCH (09:04)
[2021-10-30] MEDS: Ascorbic Acid 500 mg Chewable Tablet PO SCH (09:05)
[2021-10-30] MEDS: Polyethylene Glycol 3350 17 GM Packet PO SCH (09:05)
[2021-10-30] MEDS: ALPHA LIPOIC ACID 200 MG PO SCH (09:06)
[2021-10-30] MEDS: Mometasone/Formoterol 200/5 60 PUFF INH SCH ×2 (09:06→21:21)
[2021-10-30] MEDS: Senokot S 8.6-50 MG TAB PO SCH ×3 (09:07→21:32)
[2021-10-30] MEDS: HumaLOG 300 UNITS/3 ML VIAL SC PRN ×3 (12:40→21:23)
[2021-10-30] MEDS: lamoTRIgine 25 MG TAB PO SCH (21:19)
[2021-10-30] MEDS: Losartan 25 MG TAB PO SCH (21:20)
[2021-10-30] MEDS: Mirtazapine 15 MG TAB PO SCH (21:20)
[2021-10-30] MEDS: DULoxetine 30 MG CAP PO SCH (21:21)
[2021-10-30] MEDS: ALPRAZolam 0.5 MG TAB PO PRN (23:23)
[2021-10-31] MEDS: HYDROcodone/Acetaminophen 5/325 mg Tablet PO PRN ×3 (02:18→20:37)
[2021-10-31] MEDS: Polyethylene Glycol 3350 17 GM Packet PO SCH (08:59)
[2021-10-31] MEDS: Ascorbic Acid 500 mg Chewable Tablet PO SCH (08:59)
[2021-10-31] MEDS: Aspirin 81 mg Enteric Coated Tablet PO SCH (09:00)
[2021-10-31] MEDS: Cholecalciferol 1,000 UNITS (25 MCG) TAB PO SCH (09:00)
[2021-10-31] MEDS: Ibuprofen 200 MG TAB PO PRN ×2 (09:01→18:02)
[2021-10-31] MEDS: Cyclobenzaprine 10 MG TAB PO PRN ×2 (09:01→18:02)
[2021-10-31] MEDS: Benzonatate 100 MG CAP PO SCH ×3 (09:01→20:42)
[2021-10-31] MEDS: Enoxaparin Sodium 40 MG/0.4 ML SYRINGE SC SCH (09:02)
[2021-10-31] MEDS: ALPHA LIPOIC ACID 200 MG PO SCH (09:03)
[2021-10-31] MEDS: Lantus 1000 UNITS/10 ML VIAL SC SCH (09:11)
[2021-10-31] MEDS: HumaLOG 300 UNITS/3 ML VIAL SC PRN ×4 (09:11→20:58)
[2021-10-31] MEDS: Mometasone/Formoterol 200/5 60 PUFF INH SCH ×2 (09:12→20:47)
[2021-10-31] MEDS: Senokot S 8.6-50 MG TAB PO SCH ×2 (09:13→20:44)
[2021-10-31] MEDS: ALPRAZolam 0.5 MG TAB PO PRN (19:50)
[2021-10-31] MEDS: DULoxetine 30 MG CAP PO SCH (20:34)
[2021-10-31] MEDS: Mirtazapine 15 MG TAB PO SCH (20:40)
[2021-10-31] MEDS: lamoTRIgine 25 MG TAB PO SCH (20:40)
[2021-10-31] MEDS: Losartan 25 MG TAB PO SCH (20:41)
[2021-11-01] MEDS: Enoxaparin Sodium 40 MG/0.4 ML SYRINGE SC SCH (08:28)
[2021-11-01] MEDS: ALPHA LIPOIC ACID 200 MG PO SCH (08:28)
[2021-11-01] MEDS: Lantus 1000 UNITS/10 ML VIAL SC SCH (08:30)
[2021-11-01] MEDS: Ascorbic Acid 500 mg Chewable Tablet PO SCH (08:31)
[2021-11-01] MEDS: Cholecalciferol 1,000 UNITS (25 MCG) TAB PO SCH ×2 (08:31→08:33)
[2021-11-01] MEDS: Senokot S 8.6-50 MG TAB PO SCH ×2 (08:31→20:45)
[2021-11-01] MEDS: Aspirin 81 mg Enteric Coated Tablet PO SCH (08:32)
[2021-11-01] MEDS: HYDROcodone/Acetaminophen 5/325 mg Tablet PO PRN ×2 (08:32→20:43)
[2021-11-01] MEDS: Polyethylene Glycol 3350 17 GM Packet PO SCH (08:34)
[2021-11-01] MEDS: Benzonatate 100 MG CAP PO SCH ×3 (08:34→20:45)
[2021-11-01] MEDS: Mometasone/Formoterol 200/5 60 PUFF INH SCH ×2 (08:39→20:46)
[2021-11-01] MEDS: HumaLOG 300 UNITS/3 ML VIAL SC PRN ×2 (12:15→17:08)
[2021-11-01] MEDS: Ibuprofen 200 MG TAB PO PRN (14:01)
[2021-11-01] MEDS: Cyclobenzaprine 10 MG TAB PO PRN (14:02)
[2021-11-01] MEDS: ALPRAZolam 0.5 MG TAB PO PRN (17:14)
[2021-11-01] MEDS: lamoTRIgine 25 MG TAB PO SCH (20:43)
[2021-11-01] MEDS: DULoxetine 30 MG CAP PO SCH (20:43)
[2021-11-01] MEDS: Losartan 25 MG TAB PO SCH (20:45)
[2021-11-01] MEDS: Mirtazapine 15 MG TAB PO SCH (20:45)
[2021-11-02] MEDS: Polyethylene Glycol 3350 17 GM Packet PO SCH (08:23)
[2021-11-02] MEDS: Ascorbic Acid 500 mg Chewable Tablet PO SCH (08:24)
[2021-11-02] MEDS: Enoxaparin Sodium 40 MG/0.4 ML SYRINGE SC SCH (08:25)
[2021-11-02] MEDS: Cholecalciferol 1,000 UNITS (25 MCG) TAB PO SCH (08:25)
[2021-11-02] MEDS: Aspirin 81 mg Enteric Coated Tablet PO SCH (08:26)
[2021-11-02] MEDS: ALPHA LIPOIC ACID 200 MG PO SCH (08:26)
[2021-11-02] MEDS: Benzonatate 100 MG CAP PO SCH ×3 (08:26→21:13)
[2021-11-02] MEDS: Senokot S 8.6-50 MG TAB PO SCH ×2 (08:27→21:12)
[2021-11-02] MEDS: HumaLOG 300 UNITS/3 ML VIAL SC PRN ×4 (08:29→21:22)
[2021-11-02] MEDS: Lantus 1000 UNITS/10 ML VIAL SC SCH ×2 (08:30→16:54)
[2021-11-02] MEDS: HYDROcodone/Acetaminophen 5/325 mg Tablet PO PRN ×2 (08:37→17:46)
[2021-11-02] MEDS: Mometasone/Formoterol 200/5 60 PUFF INH SCH ×2 (09:21→21:18)
[2021-11-02] MEDS: Ibuprofen 200 MG TAB PO PRN ×2 (12:21→21:28)
[2021-11-02] MEDS: Cyclobenzaprine 10 MG TAB PO PRN ×2 (12:23→21:27)
[2021-11-02] MEDS: [UNRECOGNIZED DRUG - OTHER] SC SCH (15:29)
[2021-11-02] MEDS: lamoTRIgine 25 MG TAB PO SCH (21:12)
[2021-11-02] MEDS: Mirtazapine 15 MG TAB PO SCH (21:13)
[2021-11-02] MEDS: Losartan 25 MG TAB PO SCH (21:13)
[2021-11-02] MEDS: DULoxetine 30 MG CAP PO SCH (21:13)
[2021-11-03] MEDS: HYDROcodone/Acetaminophen 5/325 mg Tablet PO PRN ×3 (04:58→17:39)
[2021-11-03] MEDS: Cyclobenzaprine 10 MG TAB PO PRN ×2 (08:23→21:15)
[2021-11-03] MEDS: Ibuprofen 200 MG TAB PO PRN ×2 (08:23→21:15)
[2021-11-03] MEDS: Ascorbic Acid 500 mg Chewable Tablet PO SCH (08:26)
[2021-11-03] MEDS: Polyethylene Glycol 3350 17 GM Packet PO SCH (08:26)
[2021-11-03] MEDS: Enoxaparin Sodium 40 MG/0.4 ML SYRINGE SC SCH (08:26)
[2021-11-03] MEDS: Benzonatate 100 MG CAP PO SCH ×3 (08:27→21:05)
[2021-11-03] MEDS: Mometasone/Formoterol 200/5 60 PUFF INH SCH ×2 (08:27→21:24)
[2021-11-03] MEDS: Aspirin 81 mg Enteric Coated Tablet PO SCH (08:27)
[2021-11-03] MEDS: Lantus 1000 UNITS/10 ML VIAL SC SCH (08:28)
[2021-11-03] MEDS: HumaLOG 300 UNITS/3 ML VIAL SC PRN ×3 (08:30→17:42)
[2021-11-03] MEDS: Senokot S 8.6-50 MG TAB PO SCH ×2 (08:30→21:08)
[2021-11-03] MEDS: ALPHA LIPOIC ACID 200 MG PO SCH (10:54)
[2021-11-03] MEDS: Calcium Carbonate 500 MG ChewTAB PO PRN (15:20)
[2021-11-03] MEDS: DULoxetine 30 MG CAP PO SCH (21:05)
[2021-11-03] MEDS: Mirtazapine 15 MG TAB PO SCH (21:06)
[2021-11-03] MEDS: Losartan 25 MG TAB PO SCH (21:07)
[2021-11-03] MEDS: lamoTRIgine 25 MG TAB PO SCH (21:07)
[2021-11-04] MEDS: HYDROcodone/Acetaminophen 5/325 mg Tablet PO PRN ×4 (02:04→23:29)
[2021-11-04] MEDS: Benzonatate 100 MG CAP PO SCH ×3 (08:52→20:51)
[2021-11-04] MEDS: Ascorbic Acid 500 mg Chewable Tablet PO SCH (08:52)
[2021-11-04] MEDS: Lantus 1000 UNITS/10 ML VIAL SC SCH (08:53)
[2021-11-04] MEDS: Enoxaparin Sodium 40 MG/0.4 ML SYRINGE SC SCH (08:53)
[2021-11-04] MEDS: Cholecalciferol 1,000 UNITS (25 MCG) TAB PO SCH (08:53)
[2021-11-04] MEDS: Aspirin 81 mg Enteric Coated Tablet PO SCH (08:53)
[2021-11-04] MEDS: ALPHA LIPOIC ACID 200 MG PO SCH (08:54)
[2021-11-04] MEDS: Polyethylene Glycol 3350 17 GM Packet PO SCH (08:55)
[2021-11-04] MEDS: Senokot S 8.6-50 MG TAB PO SCH ×2 (08:55→20:53)
[2021-11-04] MEDS: Mometasone/Formoterol 200/5 60 PUFF INH SCH ×2 (08:56→20:52)
[2021-11-04] MEDS: HumaLOG 300 UNITS/3 ML VIAL SC PRN ×4 (08:57→20:49)
[2021-11-04] MEDS: Ibuprofen 200 MG TAB PO PRN (12:40)
[2021-11-04] MEDS: Cyclobenzaprine 10 MG TAB PO PRN (12:41)
[2021-11-04] MEDS: Mirtazapine 15 MG TAB PO SCH (20:51)
[2021-11-04] MEDS: DULoxetine 30 MG CAP PO SCH (20:51)
[2021-11-04] MEDS: Losartan 25 MG TAB PO SCH (20:51)
[2021-11-04] MEDS: lamoTRIgine 25 MG TAB PO SCH (20:52)
[2021-11-05] MEDS: HYDROcodone/Acetaminophen 5/325 mg Tablet PO PRN ×3 (08:21→23:23)
[2021-11-05] MEDS: Aspirin 81 mg Enteric Coated Tablet PO SCH (08:22)
[2021-11-05] MEDS: Cholecalciferol 1,000 UNITS (25 MCG) TAB PO SCH (08:22)
[2021-11-05] MEDS: Ascorbic Acid 500 mg Chewable Tablet PO SCH (08:22)
[2021-11-05] MEDS: Benzonatate 100 MG CAP PO SCH ×3 (08:23→20:44)
[2021-11-05] MEDS: Polyethylene Glycol 3350 17 GM Packet PO SCH (08:23)
[2021-11-05] MEDS: Lantus 1000 UNITS/10 ML VIAL SC SCH (08:23)
[2021-11-05] MEDS: HumaLOG 300 UNITS/3 ML VIAL SC PRN ×3 (08:24→18:43)
[2021-11-05] MEDS: Mometasone/Formoterol 200/5 60 PUFF INH SCH ×2 (08:25→20:50)
[2021-11-05] MEDS: ALPHA LIPOIC ACID 200 MG PO SCH (10:01)
[2021-11-05] MEDS: Senokot S 8.6-50 MG TAB PO SCH ×2 (10:02→20:44)
[2021-11-05] MEDS: Enoxaparin Sodium 40 MG/0.4 ML SYRINGE SC SCH (10:02)
[2021-11-05] MEDS: Mirtazapine 15 MG TAB PO SCH (20:45)
[2021-11-05] MEDS: lamoTRIgine 25 MG TAB PO SCH (20:46)
[2021-11-05] MEDS: Losartan 25 MG TAB PO SCH ×2 (20:47→20:49)
[2021-11-05] MEDS: DULoxetine 30 MG CAP PO SCH (20:49)
[2021-11-06] MEDS: HYDROcodone/Acetaminophen 5/325 mg Tablet PO PRN ×3 (08:36→21:56)
[2021-11-06] MEDS: Ascorbic Acid 500 mg Chewable Tablet PO SCH (08:38)
[2021-11-06] MEDS: Benzonatate 100 MG CAP PO SCH ×3 (08:38→21:55)
[2021-11-06] MEDS: Cholecalciferol 1,000 UNITS (25 MCG) TAB PO SCH (08:38)
[2021-11-06] MEDS: Aspirin 81 mg Enteric Coated Tablet PO SCH (08:38)
[2021-11-06] MEDS: Lantus 1000 UNITS/10 ML VIAL SC SCH (08:39)
[2021-11-06] MEDS: Enoxaparin Sodium 40 MG/0.4 ML SYRINGE SC SCH (08:39)
[2021-11-06] MEDS: Senokot S 8.6-50 MG TAB PO SCH ×2 (08:39→21:58)
[2021-11-06] MEDS: HumaLOG 300 UNITS/3 ML VIAL SC PRN ×3 (08:49→17:30)
[2021-11-06] MEDS: ALPHA LIPOIC ACID 200 MG PO SCH (09:10)
[2021-11-06] MEDS: Polyethylene Glycol 3350 17 GM Packet PO SCH (09:10)
[2021-11-06] MEDS: Mometasone/Formoterol 200/5 60 PUFF INH SCH ×2 (10:30→21:59)
[2021-11-06] MEDS: DULoxetine 30 MG CAP PO SCH (21:55)
[2021-11-06] MEDS: Mirtazapine 15 MG TAB PO SCH (21:56)
[2021-11-06] MEDS: lamoTRIgine 25 MG TAB PO SCH (21:58)
[2021-11-07] MEDS: HYDROcodone/Acetaminophen 5/325 mg Tablet PO PRN ×2 (08:40→17:02)
[2021-11-07] MEDS: Polyethylene Glycol 3350 17 GM Packet PO SCH (08:40)
[2021-11-07] MEDS: Ascorbic Acid 500 mg Chewable Tablet PO SCH (08:41)
[2021-11-07] MEDS: Cholecalciferol 1,000 UNITS (25 MCG) TAB PO SCH (08:41)
[2021-11-07] MEDS: Senokot S 8.6-50 MG TAB PO SCH ×2 (08:41→21:23)
[2021-11-07] MEDS: Aspirin 81 mg Enteric Coated Tablet PO SCH (08:41)
[2021-11-07] MEDS: Enoxaparin Sodium 40 MG/0.4 ML SYRINGE SC SCH (08:42)
[2021-11-07] MEDS: Lantus 1000 UNITS/10 ML VIAL SC SCH (08:42)
[2021-11-07] MEDS: Benzonatate 100 MG CAP PO SCH ×3 (08:42→21:25)
[2021-11-07] MEDS: HumaLOG 300 UNITS/3 ML VIAL SC PRN ×4 (08:43→21:33)
[2021-11-07] MEDS: Mometasone/Formoterol 200/5 60 PUFF INH SCH ×2 (09:11→21:22)
[2021-11-07] MEDS: ALPHA LIPOIC ACID 200 MG PO SCH (09:11)
[2021-11-07] MEDS: Ibuprofen 200 MG TAB PO PRN ×2 (11:11→21:42)
[2021-11-07] MEDS: Cyclobenzaprine 10 MG TAB PO PRN ×2 (11:12→21:41)
[2021-11-07] MEDS: DULoxetine 30 MG CAP PO SCH (21:23)
[2021-11-07] MEDS: lamoTRIgine 25 MG TAB PO SCH (21:25)
[2021-11-07] MEDS: Losartan 25 MG TAB PO SCH (21:25)
[2021-11-07] MEDS: Mirtazapine 15 MG TAB PO SCH (21:25)
[2021-11-08] MEDS: HYDROcodone/Acetaminophen 5/325 mg Tablet PO PRN ×3 (01:15→17:36)
[2021-11-08] MEDS: Lantus 1000 UNITS/10 ML VIAL SC SCH (09:00)
[2021-11-08] MEDS: Enoxaparin Sodium 40 MG/0.4 ML SYRINGE SC SCH (09:00)
[2021-11-08] MEDS: Ascorbic Acid 500 mg Chewable Tablet PO SCH (09:01)
[2021-11-08] MEDS: Cholecalciferol 1,000 UNITS (25 MCG) TAB PO SCH (09:01)
[2021-11-08] MEDS: Benzonatate 100 MG CAP PO SCH ×3 (09:01→20:31)
[2021-11-08] MEDS: Mometasone/Formoterol 200/5 60 PUFF INH SCH ×2 (09:02→20:33)
[2021-11-08] MEDS: Polyethylene Glycol 3350 17 GM Packet PO SCH (09:02)
[2021-11-08] MEDS: Aspirin 81 mg Enteric Coated Tablet PO SCH (09:02)
[2021-11-08] MEDS: Senokot S 8.6-50 MG TAB PO SCH ×2 (09:03→20:32)
[2021-11-08] MEDS: Cyclobenzaprine 10 MG TAB PO PRN (09:05)
[2021-11-08] MEDS: Ibuprofen 200 MG TAB PO PRN (09:05)
[2021-11-08] MEDS: ALPHA LIPOIC ACID 200 MG PO SCH (09:05)
[2021-11-08] MEDS: HumaLOG 300 UNITS/3 ML VIAL SC PRN ×3 (11:53→20:43)
[2021-11-08] MEDS: Calcium Carbonate 500 MG ChewTAB PO PRN (19:10)
[2021-11-08] MEDS: Mirtazapine 15 MG TAB PO SCH (20:32)
[2021-11-08] MEDS: Losartan 25 MG TAB PO SCH (20:32)
[2021-11-08] MEDS: DULoxetine 30 MG CAP PO SCH (20:32)
[2021-11-08] MEDS: lamoTRIgine 25 MG TAB PO SCH (20:32)
[2021-11-09] MEDS: HYDROcodone/Acetaminophen 5/325 mg Tablet PO PRN ×4 (02:12→20:48)
[2021-11-09] MEDS: Polyethylene Glycol 3350 17 GM Packet PO SCH (08:16)
[2021-11-09] MEDS: Enoxaparin Sodium 40 MG/0.4 ML SYRINGE SC SCH (08:17)
[2021-11-09] MEDS: Ascorbic Acid 500 mg Chewable Tablet PO SCH (08:20)
[2021-11-09] MEDS: Cholecalciferol 1,000 UNITS (25 MCG) TAB PO SCH (08:21)
[2021-11-09] MEDS: Benzonatate 100 MG CAP PO SCH ×3 (08:21→20:32)
[2021-11-09] MEDS: Aspirin 81 mg Enteric Coated Tablet PO SCH (08:22)
[2021-11-09] MEDS: Mometasone/Formoterol 200/5 60 PUFF INH SCH ×2 (08:23→20:33)
[2021-11-09] MEDS: Lantus 1000 UNITS/10 ML VIAL SC SCH (08:24)
[2021-11-09] MEDS: ALPHA LIPOIC ACID 200 MG PO SCH (08:32)
[2021-11-09] MEDS: Senokot S 8.6-50 MG TAB PO SCH ×2 (08:33→22:49)
[2021-11-09] MEDS: HumaLOG 300 UNITS/3 ML VIAL SC PRN ×3 (12:43→21:00)
[2021-11-09] MEDS: Losartan 25 MG TAB PO SCH (20:31)
[2021-11-09] MEDS: Mirtazapine 15 MG TAB PO SCH (20:32)
[2021-11-09] MEDS: DULoxetine 30 MG CAP PO SCH (20:32)
[2021-11-09] MEDS: lamoTRIgine 25 MG TAB PO SCH (20:32)
[2021-11-09] MEDS: Cyclobenzaprine 10 MG TAB PO PRN (21:00)
[2021-11-10] MEDS: HYDROcodone/Acetaminophen 5/325 mg Tablet PO PRN ×3 (05:21→23:47)
[2021-11-10] MEDS: Ibuprofen 200 MG TAB PO PRN ×2 (08:42→20:57)
[2021-11-10] MEDS: Enoxaparin Sodium 40 MG/0.4 ML SYRINGE SC SCH (08:42)
[2021-11-10] MEDS: Cholecalciferol 1,000 UNITS (25 MCG) TAB PO SCH (08:43)
[2021-11-10] MEDS: Ascorbic Acid 500 mg Chewable Tablet PO SCH (08:43)
[2021-11-10] MEDS: Benzonatate 100 MG CAP PO SCH ×3 (08:45→21:00)
[2021-11-10] MEDS: Lantus 1000 UNITS/10 ML VIAL SC SCH (08:45)
[2021-11-10] MEDS: Aspirin 81 mg Enteric Coated Tablet PO SCH (08:45)
[2021-11-10] MEDS: Mometasone/Formoterol 200/5 60 PUFF INH SCH ×2 (08:48→21:00)
[2021-11-10] MEDS: ALPHA LIPOIC ACID 200 MG PO SCH (08:49)
[2021-11-10] MEDS: Polyethylene Glycol 3350 17 GM Packet PO SCH (08:50)
[2021-11-10] MEDS: Senokot S 8.6-50 MG TAB PO SCH ×2 (08:50→21:03)
[2021-11-10] MEDS: HumaLOG 300 UNITS/3 ML VIAL SC PRN ×3 (12:19→22:07)
[2021-11-10] MEDS: Cyclobenzaprine 10 MG TAB PO PRN ×2 (15:27→23:49)
[2021-11-10] MEDS: Calcium Carbonate 500 MG ChewTAB PO PRN (20:51)
[2021-11-10] MEDS: DULoxetine 30 MG CAP PO SCH (20:56)
[2021-11-10] MEDS: lamoTRIgine 25 MG TAB PO SCH (20:59)
[2021-11-10] MEDS: Mirtazapine 15 MG TAB PO SCH (20:59)
[2021-11-10] MEDS: Losartan 25 MG TAB PO SCH (20:59)
[2021-11-11] MEDS: Ascorbic Acid 500 mg Chewable Tablet PO SCH ×2 (08:45→08:46)
[2021-11-11] MEDS: Cholecalciferol 1,000 UNITS (25 MCG) TAB PO SCH (08:46)
[2021-11-11] MEDS: Enoxaparin Sodium 40 MG/0.4 ML SYRINGE SC SCH (08:46)
[2021-11-11] MEDS: Benzonatate 100 MG CAP PO SCH ×3 (08:46→20:23)
[2021-11-11] MEDS: Aspirin 81 mg Enteric Coated Tablet PO SCH (08:47)
[2021-11-11] MEDS: Ibuprofen 200 MG TAB PO PRN (08:47)
[2021-11-11] MEDS: Mometasone/Formoterol 200/5 60 PUFF INH SCH ×2 (08:52→20:23)
[2021-11-11] MEDS: HYDROcodone/Acetaminophen 5/325 mg Tablet PO PRN ×3 (08:56→21:22)
[2021-11-11] MEDS: Senokot S 8.6-50 MG TAB PO SCH ×2 (08:58→20:25)
[2021-11-11] MEDS: Cyclobenzaprine 10 MG TAB PO PRN ×2 (08:59→21:47)
[2021-11-11] MEDS: Polyethylene Glycol 3350 17 GM Packet PO SCH (09:00)
[2021-11-11] MEDS: ALPHA LIPOIC ACID 200 MG PO SCH (09:03)
[2021-11-11] MEDS: Lantus 1000 UNITS/10 ML VIAL SC SCH (09:06)
[2021-11-11] MEDS: HumaLOG 300 UNITS/3 ML VIAL SC PRN ×3 (12:34→21:24)
[2021-11-11] MEDS: DULoxetine 30 MG CAP PO SCH (20:20)
[2021-11-11] MEDS: Losartan 25 MG TAB PO SCH (20:21)
[2021-11-11] MEDS: lamoTRIgine 25 MG TAB PO SCH (20:22)
[2021-11-11] MEDS: Mirtazapine 15 MG TAB PO SCH (20:23)
[2021-11-12] MEDS: HYDROcodone/Acetaminophen 5/325 mg Tablet PO PRN ×3 (05:06→17:52)
[2021-11-12] MEDS: Cyclobenzaprine 10 MG TAB PO PRN (05:09)
[2021-11-12] MEDS: Ibuprofen 200 MG TAB PO PRN ×2 (08:13→17:51)
[2021-11-12] MEDS: Aspirin 81 mg Enteric Coated Tablet PO SCH (08:15)
[2021-11-12] MEDS: Cholecalciferol 1,000 UNITS (25 MCG) TAB PO SCH (08:15)
[2021-11-12] MEDS: Enoxaparin Sodium 40 MG/0.4 ML SYRINGE SC SCH (08:16)
[2021-11-12] MEDS: Benzonatate 100 MG CAP PO SCH ×3 (08:16→20:37)
[2021-11-12] MEDS: Polyethylene Glycol 3350 17 GM Packet PO SCH (08:17)
[2021-11-12] MEDS: Senokot S 8.6-50 MG TAB PO SCH ×2 (08:17→20:38)
[2021-11-12] MEDS: ALPHA LIPOIC ACID 200 MG PO SCH (08:20)
[2021-11-12] MEDS: Mometasone/Formoterol 200/5 60 PUFF INH SCH ×2 (08:23→20:41)
[2021-11-12] MEDS: Lantus 1000 UNITS/10 ML VIAL SC SCH (08:24)
[2021-11-12] MEDS: HumaLOG 300 UNITS/3 ML VIAL SC PRN ×3 (12:20→20:42)
[2021-11-12] MEDS: Mirtazapine 15 MG TAB PO SCH (20:37)
[2021-11-12] MEDS: Losartan 25 MG TAB PO SCH (20:37)
[2021-11-12] MEDS: DULoxetine 30 MG CAP PO SCH (20:37)
[2021-11-12] MEDS: Calcium Carbonate 500 MG ChewTAB PO PRN (20:40)
[2021-11-12] MEDS: ALPRAZolam 0.5 MG TAB PO PRN (20:54)
[2021-11-12] MEDS: lamoTRIgine 25 MG TAB PO SCH (23:10)
[2021-11-13] MEDS: HYDROcodone/Acetaminophen 5/325 mg Tablet PO PRN ×4 (02:47→21:52)
[2021-11-13] MEDS: Lantus 1000 UNITS/10 ML VIAL SC SCH (08:44)
[2021-11-13] MEDS: Aspirin 81 mg Enteric Coated Tablet PO SCH (08:45)
[2021-11-13] MEDS: Ascorbic Acid 500 mg Chewable Tablet PO SCH (08:45)
[2021-11-13] MEDS: Cholecalciferol 1,000 UNITS (25 MCG) TAB PO SCH (08:45)
[2021-11-13] MEDS: Benzonatate 100 MG CAP PO SCH ×3 (08:45→21:35)
[2021-11-13] MEDS: Enoxaparin Sodium 40 MG/0.4 ML SYRINGE SC SCH (08:46)
[2021-11-13] MEDS: Polyethylene Glycol 3350 17 GM Packet PO SCH (08:46)
[2021-11-13] MEDS: Mometasone/Formoterol 200/5 60 PUFF INH SCH ×2 (08:46→21:36)
[2021-11-13] MEDS: Senokot S 8.6-50 MG TAB PO SCH ×2 (09:00→21:37)
[2021-11-13] MEDS: ALPHA LIPOIC ACID 200 MG PO SCH (09:00)
[2021-11-13] MEDS: Cyclobenzaprine 10 MG TAB PO PRN ×2 (11:25→21:34)
[2021-11-13] MEDS: Ibuprofen 200 MG TAB PO PRN ×2 (11:25→21:33)
[2021-11-13] MEDS: HumaLOG 300 UNITS/3 ML VIAL SC PRN ×2 (17:47→21:32)
[2021-11-13] MEDS: DULoxetine 30 MG CAP PO SCH (21:31)
[2021-11-13] MEDS: Losartan 25 MG TAB PO SCH (21:35)
[2021-11-13] MEDS: Mirtazapine 15 MG TAB PO SCH (21:36)
[2021-11-13] MEDS: ALPRAZolam 0.5 MG TAB PO PRN (21:52)
[2021-11-14 05:11] LABS: Hemoglobin 11.3 g/dL (12.0-16.0); Platelet Count 374 thou/uL (130-400)
[2021-11-14] MEDS: HYDROcodone/Acetaminophen 5/325 mg Tablet PO PRN ×3 (08:07→21:45)
[2021-11-14] MEDS: Lantus 1000 UNITS/10 ML VIAL SC SCH (08:51)
[2021-11-14] MEDS: Polyethylene Glycol 3350 17 GM Packet PO SCH (08:52)
[2021-11-14] MEDS: Cholecalciferol 1,000 UNITS (25 MCG) TAB PO SCH (08:52)
[2021-11-14] MEDS: Enoxaparin Sodium 40 MG/0.4 ML SYRINGE SC SCH (08:52)
[2021-11-14] MEDS: Benzonatate 100 MG CAP PO SCH ×3 (08:52→21:55)
[2021-11-14] MEDS: Aspirin 81 mg Enteric Coated Tablet PO SCH (08:53)
[2021-11-14] MEDS: Ascorbic Acid 500 mg Chewable Tablet PO SCH (08:53)
[2021-11-14] MEDS: ALPHA LIPOIC ACID 200 MG PO SCH (08:53)
[2021-11-14] MEDS: Mometasone/Formoterol 200/5 60 PUFF INH SCH ×2 (08:54→21:53)
[2021-11-14] MEDS: Senokot S 8.6-50 MG TAB PO SCH ×2 (15:23→22:22)
[2021-11-14] MEDS: HumaLOG 300 UNITS/3 ML VIAL SC PRN ×2 (17:17→21:53)
[2021-11-14] MEDS: Cyclobenzaprine 10 MG TAB PO PRN (17:29)
[2021-11-14] MEDS: Ibuprofen 200 MG TAB PO PRN (17:29)
[2021-11-14] MEDS: ALPRAZolam 0.5 MG TAB PO PRN (21:43)
[2021-11-14] MEDS: DULoxetine 30 MG CAP PO SCH (21:55)
[2021-11-14] MEDS: Mirtazapine 15 MG TAB PO SCH (21:55)
[2021-11-14] MEDS: Losartan 25 MG TAB PO SCH (21:55)
[2021-11-15] MEDS: Enoxaparin Sodium 40 MG/0.4 ML SYRINGE SC SCH (08:27)
[2021-11-15] MEDS: Polyethylene Glycol 3350 17 GM Packet PO SCH ×3 (08:38→09:20)
[2021-11-15] MEDS: Aspirin 81 mg Enteric Coated Tablet PO SCH ×2 (08:38→08:41)
[2021-11-15] MEDS: HYDROcodone/Acetaminophen 5/325 mg Tablet PO PRN ×3 (08:39→21:33)
[2021-11-15] MEDS: Mometasone/Formoterol 200/5 60 PUFF INH SCH ×2 (08:43→21:18)
[2021-11-15] MEDS: Ascorbic Acid 500 mg Chewable Tablet PO SCH (09:12)
[2021-11-15] MEDS: Cholecalciferol 1,000 UNITS (25 MCG) TAB PO SCH (09:13)
[2021-11-15] MEDS: Benzonatate 100 MG CAP PO SCH ×3 (09:15→21:18)
[2021-11-15] MEDS: Lantus 1000 UNITS/10 ML VIAL SC SCH (09:15)
[2021-11-15] MEDS: ALPHA LIPOIC ACID 200 MG PO SCH (09:21)
[2021-11-15] MEDS: Senokot S 8.6-50 MG TAB PO SCH ×2 (09:22→21:19)
[2021-11-15] MEDS: Ibuprofen 200 MG TAB PO PRN (13:55)
[2021-11-15] MEDS: Cyclobenzaprine 10 MG TAB PO PRN (13:56)
[2021-11-15] MEDS: HumaLOG 300 UNITS/3 ML VIAL SC PRN (21:16)
[2021-11-15] MEDS: Losartan 25 MG TAB PO SCH (21:17)
[2021-11-15] MEDS: DULoxetine 30 MG CAP PO SCH (21:17)
[2021-11-15] MEDS: Mirtazapine 15 MG TAB PO SCH (21:18)
[2021-11-16] MEDS: HYDROcodone/Acetaminophen 5/325 mg Tablet PO PRN ×4 (03:32→22:02)
[2021-11-16] MEDS: Polyethylene Glycol 3350 17 GM Packet PO SCH (08:18)
[2021-11-16] MEDS: Enoxaparin Sodium 40 MG/0.4 ML SYRINGE SC SCH (08:18)
[2021-11-16] MEDS: Ibuprofen 200 MG TAB PO PRN ×2 (08:19→21:32)
[2021-11-16] MEDS: Cholecalciferol 1,000 UNITS (25 MCG) TAB PO SCH (08:19)
[2021-11-16] MEDS: Ascorbic Acid 500 mg Chewable Tablet PO SCH (08:19)
[2021-11-16] MEDS: Cyclobenzaprine 10 MG TAB PO PRN ×2 (08:20→21:33)
[2021-11-16] MEDS: Aspirin 81 mg Enteric Coated Tablet PO SCH (08:22)
[2021-11-16] MEDS: Benzonatate 100 MG CAP PO SCH ×3 (08:22→21:21)
[2021-11-16] MEDS: Lantus 1000 UNITS/10 ML VIAL SC SCH (08:23)
[2021-11-16] MEDS: Mometasone/Formoterol 200/5 60 PUFF INH SCH ×2 (08:24→21:22)
[2021-11-16] MEDS: Senokot S 8.6-50 MG TAB PO SCH ×2 (08:26→21:22)
[2021-11-16] MEDS: ALPHA LIPOIC ACID 200 MG PO SCH (08:33)
[2021-11-16] MEDS: HumaLOG 300 UNITS/3 ML VIAL SC PRN ×2 (12:22→21:27)
[2021-11-16] MEDS: [UNRECOGNIZED DRUG - OTHER] SC SCH (16:03)
[2021-11-16] MEDS: Losartan 25 MG TAB PO SCH (21:20)
[2021-11-16] MEDS: Mirtazapine 15 MG TAB PO SCH (21:20)
[2021-11-16] MEDS: DULoxetine 30 MG CAP PO SCH (21:20)
[2021-11-17] MEDS: HYDROcodone/Acetaminophen 5/325 mg Tablet PO PRN ×2 (04:30→11:34)
[2021-11-17 06:32] VITALS: BP 167/78; TEMP 98.8
[2021-11-17] MEDS: Polyethylene Glycol 3350 17 GM Packet PO SCH (09:19)
[2021-11-17] MEDS: Enoxaparin Sodium 40 MG/0.4 ML SYRINGE SC SCH (09:20)
[2021-11-17] MEDS: Ascorbic Acid 500 mg Chewable Tablet PO SCH (09:21)
[2021-11-17] MEDS: Cholecalciferol 1,000 UNITS (25 MCG) TAB PO SCH (09:21)
[2021-11-17] MEDS: Aspirin 81 mg Enteric Coated Tablet PO SCH (09:22)
[2021-11-17] MEDS: Benzonatate 100 MG CAP PO SCH ×2 (09:22→16:44)
[2021-11-17] MEDS: Mometasone/Formoterol 200/5 60 PUFF INH SCH (09:23)
[2021-11-17] MEDS: ALPHA LIPOIC ACID 200 MG PO SCH (09:25)
[2021-11-17] MEDS: Ibuprofen 200 MG TAB PO PRN (09:33)
[2021-11-17] MEDS: Cyclobenzaprine 10 MG TAB PO PRN (09:34)
[2021-11-17] MEDS: Lantus 1000 UNITS/10 ML VIAL SC SCH (09:36)
[2021-11-17] MEDS: Senokot S 8.6-50 MG TAB PO SCH (09:42)
[2021-11-17] MEDS: HumaLOG 300 UNITS/3 ML VIAL SC PRN (11:39)
== END 2021-11-17 17:50 | disposition home or self-care (01) | DRG 561 ==
LOC: BURMED 18:45
PROVIDERS: ADMIT Family Medicine; ATTEND Family Medicine
DX: S72.401D Unspecified fracture of lower end of right femur, subsequent encounter for closed fracture with routine healing (principal); W10.9XXD Fall (on) (from) unspecified stairs and steps, subsequent encounter; Z20.822 Contact with and (suspected) exposure to COVID-19; J45.909 Unspecified asthma, uncomplicated; I10 Essential (primary) hypertension; F41.9 Anxiety disorder, unspecified; F32.A Depression, unspecified; K21.9 Gastro-esophageal reflux disease without esophagitis; G89.29 Other chronic pain; E11.42 Type 2 diabetes mellitus with diabetic polyneuropathy; Z79.899 Other long term (current) drug therapy; Z86.16 Personal history of COVID-19; Z87.01 Personal history of pneumonia (recurrent); Z79.4 Long term (current) use of insulin; Z79.82 Long term (current) use of aspirin; Z88.8 Allergy status to other drugs, medicaments and biological substances
CPT/HCPCS: 36415; 36416; 82565; 85014; 85018; 85049; 94664; J1650; J1815; J7611; Q0169; U0003; U0005